=== PATIENT | female | born 1970 | race Caucasian/White ===

== ENCOUNTER 2019-12-22 15:51 | Emergency (ER) | payer OTHER, SELFPAY ==
--- NOTE | ~2019-12-22 | XR_ITS ---
XR foot RT min 3V, XR foot LT min 3V 12/22/2019 16:51 Indication: Bilateral foot pain Procedure: 4 views of each foot Comparison: No prior studies for comparison. Findings: No fracture, subluxation or dislocation. Lisfranc joint intact. Normal mineralization. Ther e is anatomic alignment. No focal soft tissue abnormality. No radiopaque foreign bodies. Impression: 1: No acute bone or joint abnormality. Reviewed, dictated and finalized at location A. Impression: 1: No acute bone or joint abnormality. Impression: 1: No acute bone or joint abnormality.
--- NOTE | ~2019-12-22 | US_ITS ---
EXAMINATION: US venous doppler [facility] DATE: 12/22/2019 17:08 INDICATION: Lower limb swelling and pain TECHNIQUE: John scale images without and with compression and Doppler images of the bilateral lower e xtremity veins were obtained. COMPARISON: None FINDINGS: The right common femoral vein, profunda femoral vein, femoral vein, popliteal vein, peroneal trunk, p osterior tibial veins, and greater saphenous vein are patent. The left common femoral vein, profunda femoral vein, femoral vein, popliteal vein, peroneal trunk, po sterior tibial veins, and greater saphenous vein are patent. IMPRESSION: 1. Patent bilateral lower extremity veins. No evidence of deep venous thrombosis. Reviewed, dictated and finalized at location A. IMPRESSION: 1. Patent bilateral lower extremity veins. No evidence of deep venous thrombosi s.
--- NOTE | ~2019-12-22 | CT_ITS ---
EXAMINATION: CTA chest PE protocol DATE: 12/22/2019 18:09 INDICATION: Pleuritic chest pain and shortness of breath TECHNIQUE: Computed tomography angiography (CTA) of the chest was performed with 100 mL Omnipaque-350 intravenous contrast timed to evaluate the pulmonary arteries. Coronal maximum intensity projection 3D-reconstructions were created by the technologist. The dose-length product (DLP) was 743.16 mGy-cm. Automated exposure control and iterative reconstruction technique were employed. COMPARISON: 11/30/2018 FINDINGS: The pulmonary arteries are well-opacified. Filling defects are present in subsegmental bran ches of the right lower lobe in a distribution similar to prior CT examinations. No additional pulmon catarina emboli are identified. The lungs are free of acute opacities. There is no pleural effusion or pne umothorax. No pathologically enlarged thoracic lymph nodes are identified. The heart size is normal. Chronic subpleural airspace opacity of the right lung base likely reflects scarring. The gallbladder is surgically absent. IMPRESSION: 1. Pulmonary emboli in the right lower lobe which are in a distribution similar to previously identif ied emboli and have a chronic appearance. No acute emboli are identified. These findings were discuss ed with Kaylin Torres PA-C in the Emergency Department at 1836 hours on 12/22/2019. Reviewed, dictated and finalized at location A. IMPRESSION: 1. Pulmonary emboli in the right lower lobe which are in a distribution similar to previously identified emboli and have a chronic appearance. No acute emboli are identified. These findings were discussed with Kaylin Torres PA-C in [facility] Emergency Department at 1836 hours on 12/22/2019.
--- NOTE | ~2019-12-22 | XR_ITS ---
EXAMINATION: XR chest 2V 12/22/2019 16:51 INDICATION: Pleuritic chest pain PROCEDURE: 2 view chest COMPARISON: 11/19/2018 FINDINGS: The lungs are clear. The cardiomediastinal silhouette is within normal limits. There are no pleural effusions. There is no pneumothorax suspected. IMPRESSION: 1: NO ACUTE CARDIOPULMONARY DISEASE. Reviewed, dictated and finalized at location A.
[2019-12-22 15:53] VITALS: BP 132/95; PULSE 75; RESP 18; TEMP 36.6; O2SAT 100
[2019-12-22] MEDS: ACETAMINOPHEN 500 MG TABLET 1000 MG PO (16:29)
--- NOTE | 2019-12-22 16:32 | ED.LOWEXIN ---
HPI - Extremity Injury (Lower) General Chief Complaint: Extremity Injury, Lower <Kaylin Torres PA-C - Last Filed: 12/22/19 20:04> Stated Complaint: bilateral leg pain <EMELI Wylie Last Filed: 12/22/19 20:04> Time Seen by Provider: 12/22/19 16:06 <Kaylin Torres PA-C - Last Filed: 12/22/19 20:04> Source: patient <EMELI Wylie Last Filed: 12/22/19 20:04> Mode of arrival: ambulatory <EMELI Wylie Last Filed: 12/22/19 20:04> Limitations: no limitations <EMELI Wylie Last Filed: 12/22/19 20:04> History of Present Illness HPI Narrative: This is a 49-year-old female that presents the emergency department for bilateral lower extremity pain x3 weeks. Pain is mostly in the calves and into the foot and ankles. 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 Reports she is on Xarelto. She has been taking it as prescribed. Reports she is also been having intermittent pleuritic chest pain. Also reports intermittent shortness of breath. Reports lower extremity edema. Denies fever, cough, or lower extremity erythema. <Kaylin Torres PA-C - Last Filed: 12/22/19 20:04> Related Data Home Medications: Home Medications Medication Instructions Recorded Confirmed ferrous sulfate 325 mg (65 mg 325 mg PO DAILY 02/22/19 iron) tablet levetiracetam 1,000 mg tablet 1,500 mg PO BID tablet 02/22/19 levothyroxine 25 mcg capsule 25 mcg PO DAILY 02/22/19 rivaroxaban 20 mg tablet 20 mg PO DAILY 02/22/19 topiramate 100 mg tablet 100 mg PO BID 02/22/19 lacosamide 100 mg tablet 100 mg PO Q12H 03/03/19 <EMELI Wylie Last Filed: 12/22/19 20:04> Allergies/Adverse Reactions: Allergies Allergy/AdvReac Type Severity Reaction Status Date / Time No Known Allergies Allergy Unverified 12/03/18 15:47 <Kaylin Torres PA-C - Last Filed: 12/22/19 20:04> Review of Systems Review of Systems: Narrative: CONSTITUTIONAL: Denies fever CARDIOVASCULAR: Reports chest pain, and edema. RESPIRATORY: Reports dyspnea. Denies cough SKIN: Denies rash MUSCULOSKELETAL: Reports joint pain, and myalgia. NEUROLOGIC: Denies numbness <Kaylin Torres PA-C - Last Filed: 12/22/19 20:04> All systems reviewed & are unremarkable except as noted in HPI and below <Kaylin Torres PA-C - Last Filed: 12/22/19 20:04> [facility] Past Medical History Medical History: Medical History (Updated 12/23/19 @ 00:00 by [facility] Daheather) Anemia Headache, migraine Seizure disorder <Kaylin Torres PA-C - Last Filed: 12/22/19 20:04> Surgical History Surgical History: Surgical History (Updated 12/22/19 @ 17:28 by Kaylin Torres PA-C) History of cholecystectomy <Kaylin Torres PA-C - Last Filed: 12/22/19 20:04> Social History Social History: Social History Smoking status: Never smoker Alcohol intake: never <Kaylin Torres PA-C - Last Filed: 12/22/19 20:04> Exam Narrative: Exam Narrative: GENERAL: Well-appearing, obese, and in no acute distress. HEAD: Normocephalic, atraumatic. EYES: EOMI. CHEST: Clear to auscultation. No respiratory distress. No wheezes rales or rhonchi HEART: Regular rate and rhythm. No murmur heard. Normal peripheral pulses. ABDOMEN: Soft, nontender, nondistended, normal active bowel sounds. EXTREMITIES: Normal range of motion. Mild non-pitting edema about the ankles and into the foot. Normal DP pulses SKIN: Warm, dry, no rash. NEURO: No focal deficits. Alert and oriented x3. PSYCH: Normal mood and affect <Kaylin Torres PA-C - Last Filed: 12/22/19 20:04> Course Vital Signs Vital signs: Vital Signs Temperature 36.6 C 12/22/19 15:53 Pulse Rate 75 12/22/19 15:53 Respiratory Rate 18 12/22/19 15:53 Blood Pressure 132/95 H 12/22/19 15:53 Pulse Oximetry 100 12/22/19 15:53 Temperature 36.6 C 12/22/19 15:53 Pulse Rate 77 12/22/19 20:10
--- NOTE | 2019-12-22 17:00 | ECG_ITS ---
Measurements Intervals [place] Rate: 73 P: 57 MD: 153 QRS: 43 QRSD: 85 T: 52 QT: 374 QTc: 414 Interpretive Statements SINUS RHYTHM BASELINE ARTIFACT- I, II, AVR, AVL, AVF NORMAL ECG Electronically Signed On 12-23-2019 20:02:42 CDT by Drew Leyva D.O.
[2019-12-22 17:18] VITALS: BP 109/66; PULSE 79; RESP 19; O2SAT 100
[2019-12-22 17:34] LABS: Basophils Absolute Auto 0.1 K/mm3 (0.0-0.1); Basophils Percent Auto 0.7 % (0.2-1.2); Eosinophils Absolute Auto 0.6 K/mm3 (0-0.3); Eosinophils Percent Auto 7.6 % (0-4.4); Hematocrit 33.6 % (37.0-47.0); Hemoglobin 10.8 g/dL (12.0-15.0); Immature Granulocyte Absolute 0.02 K/mm3 (0.00-0.031); Immature Granulocyte Percent A 0.3 % (0-0.5); Lymphocytes Absolute Auto 3.54 K/mm3 (0.9-3.2); Lymphocytes Percent Auto 46.6 % (18.3-44.2); Mean Corpuscular HGB Conc 32.1 g/dl (32-36); Mean Corpuscular Hemoglobin 31.2 pg (26-34); Mean Corpuscular Volume 97.1 fl (80-100); Mean Platelet Volume 10.6 fl (7.4-10.4); Monocytes Absolute Auto 0.7 K/mm3 (0.1-0.6); Monocytes Percent Auto 8.6 % (2.6-8.5); Neutrophils Absolute Auto 2.8 K/mm3 (1.3-6.7); Neutrophils Percent Auto 36.2 % (45.5-73.1); Platelet Count Result 316 k/mm3 (150-375); Red Blood Count 3.46 M/mm3 (4.2-5.4); Red Cell Distribution Width 12.7 % (11.5-14.5); White Blood Count 7.6 K/mm3 (4.5-10.0)
[2019-12-22 17:43] LABS: INR 1.1; Partial Thromboplastin Time 23.6 SECONDS (22.3-36.8)
[2019-12-22 17:46] LABS: Anion Gap 4 mmol/L (8-16); Blood Urea Nitrogen 18 mg/dL (7-17); Carbon Dioxide 23 mmol/L (22-30); Chloride 108 mmol/L (98-107); Estimated CRCL calculation 84 ml/min; Estimated Glomerular Filt Rate > 60; Glucose 94 mg/dL (65-105); Potassium 4.4 mmol/L (3.4-5.0); Sodium 135 mmol/L (137-145)
[2019-12-22 17:58] LABS: NT Pro B Type Natriuretic Pept 26 PG/ML (5-100); Troponin I < 0.012 ng/mL (0.000-0.034)
[2019-12-22 19:10] VITALS: BP 116/56; PULSE 88; RESP 12; O2SAT 97
--- NOTE | 2019-12-22 19:28 | ECG_ITS ---
Measurements Intervals [place] Rate: 85 P: 58 MA: 154 QRS: 44 QRSD: 76 T: 63 QT: 361 QTc: 430 Interpretive Statements SINUS RHYTHM LOW QRS VOLTAGE IN PRECORDIAL LEADS BASELINE ARTIFACT- I, II, III, AVR, AVL, AVF, V1-V2 BORDERLINE ECG Electronically Signed On 12-23-2019 6:50:39 CDT by Drew Leyva D.O.
--- NOTE | 2019-12-22 19:31 | PC.NURSE ---
Pt. reporting increased chest pain. ERP notified, at bedside. VORB repeat ekg and if normal pt can go home.
[2019-12-22] MEDS: IBUPROFEN 600 MG TABLET PO (19:38)
--- NOTE | 2019-12-22 20:08 | PC.NURSE ---
Pt. requesting to speak w/ ERP before discharge.
[2019-12-22 20:10] VITALS: BP 109/70; PULSE 77; RESP 17; O2SAT 100
== END 2019-12-22 20:10 | disposition home or self-care (01) ==
PROVIDERS: Physician Assistant; Emergency Provider Emergency Medicine
DX: M79.662 Pain in left lower leg (principal); M79.661 Pain in right lower leg; R07.81 Pleurodynia; D64.9 Anemia, unspecified; Z79.01 Long term (current) use of anticoagulants; G40.909 Epilepsy, unspecified, not intractable, without status epilepticus; I27.82 Chronic pulmonary embolism; R94.31 Abnormal electrocardiogram [ECG] [EKG]
CPT/HCPCS: 36415; 71046; 71275; 73630; 80048; 81025; 83880; 84484; 85025; 85610; 85730; 93005; 93970; 99284; A9270; Q9967

== ENCOUNTER 2020-07-02 06:21 | Emergency (ER) | payer OTHER, SELFPAY ==
--- NOTE | ~2020-07-02 | CT_ITS ---
EXAMINATION: CT brain wo con DATE: 07/02/2020 08:01 INDICATION: Seizure. Headache. Dizziness. TECHNIQUE: Computed tomography (CT) of the head was performed without intravenous contrast. The mA wa s adjusted according to patient size. Iterative reconstruction technique was employed. The dose-lengt h product was 605.33 mGy-cm. COMPARISON: Head CT 12/03/2018 FINDINGS: There is no intracranial hemorrhage, acute infarction, or abnormal intracranial mass lesion . The ventricles are normal in size. The orbits are normal. There is mucosal thickening in the parana betsy sinuses. The mastoid air cells are normal. IMPRESSION: 1. Normal brain. Reviewed, dictated and finalized at location A. IMPRESSION: 1. Normal brain.
--- NOTE | ~2020-07-02 | XR_ITS ---
EXAMINATION: XR chest 1V portable DATE: 07/02/2020 06:55 INDICATION: Chest pain. TECHNIQUE: A single frontal view of the chest was obtained. COMPARISON: Chest 2 views 12/22/2019, chest CT 12/22/2019 FINDINGS: There is mild atelectasis at right lung base. No pleural effusion or pneumothorax. The hear t size is normal. IMPRESSION: 1. Mild atelectasis at right lung base. Reviewed, dictated and finalized at location A.
[2020-07-02 06:17] VITALS: BP 121/77; PULSE 76; RESP 16; TEMP 36.2; O2SAT 97
--- NOTE | 2020-07-02 06:47 | ECG_ITS ---
Measurements Intervals [place] Rate: 61 P: 67 MO: 157 QRS: 54 QRSD: 81 T: 49 QT: 401 QTc: 404 Interpretive Statements SINUS RHYTHM BASELINE ARTIFACT- V1-V2 NORMAL ECG Electronically Signed On 07-02-2020 7:09:53 CDT by Drew Leyva D.O.
[2020-07-02 07:04] LABS: Basophils Absolute Auto 0.1 K/mm3 (0.0-0.1); Basophils Percent Auto 0.9 % (0.2-1.2); Eosinophils Absolute Auto 0.8 K/mm3 (0-0.3); Eosinophils Percent Auto 9.7 % (0-4.4); Hematocrit 36.2 % (37.0-47.0); Hemoglobin 11.8 g/dL (12.0-15.0); Immature Granulocyte Absolute 0.03 K/mm3 (0.00-0.031); Immature Granulocyte Percent A 0.4 % (0-0.5); Lymphocytes Percent Auto 39.9 % (18.3-44.2); Mean Corpuscular HGB Conc 32.6 g/dl (32-36); Mean Corpuscular Hemoglobin 32.5 pg (26-34); Mean Corpuscular Volume 99.7 fl (80-100); Mean Platelet Volume 10.4 fl (7.4-10.4); Monocytes Absolute Auto 0.7 K/mm3 (0.1-0.6); Monocytes Percent Auto 8.5 % (2.6-8.5); Neutrophils Absolute Auto 3.2 K/mm3 (1.3-6.7); Neutrophils Percent Auto 40.6 % (45.5-73.1); Platelet Count Result 334 k/mm3 (150-375); Red Blood Count 3.63 M/mm3 (4.2-5.4); Red Cell Distribution Width 12.8 % (11.5-14.5); White Blood Count 7.8 K/mm3 (4.5-10.0)
[2020-07-02 07:13] VITALS: PULSE 57
[2020-07-02 07:14] VITALS: BP 113/73; PULSE 63; RESP 20; O2SAT 99
[2020-07-02 07:14] LABS: Add Urine Microscopic? YES; Appearance Urine Cloudy (Clear); Bacteria Urine Trace /hpf; Bilirubin Urine Negative (Negative); Blood Urine 3+ (Negative); Color Urine Red (Yellow); Glucose Urine UA Negative (Negative); Ketones Urine Negative (Negative); Leukocyte Esterase Ur Negative LEU/UL (Negative); Mucus Urine Rare /lpf; Nitrate Urine Negative (Negative); Protein Urine 2+ mg/dL (Negative); RBC Urine >75 /hpf (0-2); Squamous Epithelial Cell Urine Few /hpf (Few); Urobilinogen Urine Negative mg/dL (<2.0)
[2020-07-02 07:15] LABS: Specific Grav Ur 1.034 (1.001-1.035)
[2020-07-02 07:16] LABS: Alanine Aminotransferase 12 U/L (4-35); Albumin Level 4.1 g/dL (3.5-5.1); Alkaline Phosphatase 88 U/L (38-126); Anion Gap 6 mmol/L (8-16); Aspartate Amino Transferase 17 U/L (14-36); Bilirubin,Total 0.2 mg/dL (0.2-1.3); Blood Urea Nitrogen 14 mg/dL (7-17); Calcium 8.9 mg/dL (8.4-10.2); Carbon Dioxide 23 mmol/L (22-30); Chloride 111 mmol/L (98-107); Estimated CRCL calculation 95 ml/min; Estimated Glomerular Filt Rate > 60; Glucose 100 mg/dL (65-105); Potassium 3.4 mmol/L (3.4-5.0); Sodium 140 mmol/L (137-145)
[2020-07-02 07:28] LABS: Troponin I < 0.012 ng/mL (0.000-0.034)
--- NOTE | 2020-07-02 08:21 | ED.SEIZURE ---
HPI - Seizure General Chief Complaint: Seizure Stated Complaint: seizure Time Seen by Provider: 07/02/20 07:04 History of Present Illness HPI Narrative: Patient is a 49-year-old female with history of seizure disorder who presents to the ER after having what she feels like was a seizure. She believes she had to episodes a seizure yesterday because she woke up and felt postictal. Today she members waking up getting up with a day and then she awoke on her floor. No loss of bowel or bladder. She does feel like she bit her tongue but no blood from her mouth. She takes Vimpat, Keppra, and topiramate for her seizures. She sees Dr. Mullins at [facility] for her care. She reports she has not been sleeping as well typically but has had no change in her habits otherwise and no increased stress. Patient reports mild headache after waking up. She does take a blood thinner for blood clots. Seizure History: Yes Related Data Home Medications Medication Instructions Recorded Confirmed levetiracetam 1,000 mg tablet 1,500 mg PO BID tablet 02/22/19 levothyroxine 25 mcg capsule 25 mcg PO DAILY 02/22/19 rivaroxaban 20 mg tablet 20 mg PO DAILY 02/22/19 topiramate 100 mg tablet 100 mg PO BID 02/22/19 lacosamide 100 mg tablet 100 mg PO Q12H 03/03/19 Allergies Allergy/AdvReac Type Severity Reaction Status Date / Time No Known Allergies Allergy Verified 07/02/20 06:26 Review of Systems Review of Systems: All systems reviewed & are unremarkable except as noted in HPI and below Constitutional: Constitutional: Denies chills, Denies fever(s) and Denies weakness ENT: Denies nasal congestion and Denies sore throat Comments: Tongue Pain Respiratory: Respiratory: Denies cough and Denies dyspnea Gastrointestinal: Gastrointestinal: Denies abdominal pain, Denies nausea and Denies vomiting Neurologic: Reports syncope (Seizure), Reports headache(s) and Denies numbness PMFSH Past Medical History Medical History (Updated 07/02/20 @ 10:30 by Mao Sepulveda MD) Anemia Headache, migraine Pulmonary embolism Seizure disorder Surgical History Surgical History (Updated 12/22/19 @ 17:28 by Kaylin Torres PA-C) History of cholecystectomy Social History Social History Smoking status: Never smoker Alcohol intake: never Exam Narrative: Exam Narrative: GENERAL: Well-appearing, well-nourished, and in no acute distress. HEAD: Normocephalic, atraumatic. ENT: Mucous membranes moist. Normal-appearing tongue CHEST: Clear to auscultation. No respiratory distress. HEART: Regular rate and rhythm. Normal peripheral pulses. ABDOMEN: Soft, nontender, nondistended. EXTREMITIES: Normal range of motion. No edema. SKIN: Warm, dry, no rash. NEURO: Alert and oriented x3. Course Course Emergency Course: Patient resting comfortably. Discussed with Dr. Mullins. Recommends increasing patient's Keppra to 1500 mg twice a day. We will add on levels for the topiramate as well as the Keppra. He also request CK and prolactin levels. These do not need to be resulted before patient is discharged. Patient verbalized understanding of treatment plan. She has been instructed not to drive or operate heavy machinery. Vital Signs Vital signs: Vital Signs Temperature 97.2 F L 07/02/20 06:17 Pulse Rate 76 07/02/20 06:17 Respiratory Rate 16 07/02/20 06:17 Blood Pressure 121/77 07/02/20 06:17 Pulse Oximetry 97 07/02/20 06:17 Temperature 97.2 F L 07/02/20 06:17 Pulse Rate 64 07/02/20 09:22 Respiratory Rate 17 07/02/20 09:22 Blood Pressure 111/69 07/02/20 09:22 Pulse Oximetry 100 07/02/20 09:22 MDM - Seizure Lab Data Result diagrams: 07/02/20 06:48 07/02/20 06:48 Labs: Lab Results 07/02/20 07/02/20 07/02/20 Range/Units 06:48 06:48 06:48 WBC 7.8 (4.5-10.0) K/mm3 RBC 3.63 L (4.2-5.4) M/mm3 Hgb 11.8 L (12.0-15.0) g/dL Hct 36.2 L (37.0-47.0) % MCV
[2020-07-02 09:22] VITALS: BP 111/69; PULSE 64; RESP 17; O2SAT 100
[2020-07-02] MEDS: levETIRAcetam 500 MG TABLET 1500 MG PO (09:44)
[2020-07-02 10:36] VITALS: BP 113/73; PULSE 71; RESP 21; O2SAT 100
[2020-07-06 03:13] LABS: Levetiracetam Keppra 13.3 mcg/mL (12.0-46.0)
== END 2020-07-02 10:37 | disposition home or self-care (01) ==
PROVIDERS: Emergency Medicine; Emergency Provider Emergency Medicine
DX: G40.909 Epilepsy, unspecified, not intractable, without status epilepticus (principal); Z86.711 Personal history of pulmonary embolism; Z79.01 Long term (current) use of anticoagulants
CPT/HCPCS: 36415; 70450; 71045; 80053; 80177; 81001; 84484; 85025; 87086; 87088; 93005; 99284; A9270

== ENCOUNTER 2025-02-27 15:04 | Emergency (ER) | payer OTHER, SELFPAY ==
--- NOTE | ~2025-02-27 | XR_ITS ---
XR tibia fibula RT 2V 02/27/2025 18:12 Indication: Right fibular fracture Procedure: 4 views right tibia/fibula Comparison: 02/27/2025 Findings: Stable appearance to proximal right fibular fracture. No other fracture. No soft tissue abnormality. No foreign body. Impression: 1: Stable appearance to minimally displaced proximal fibular fracture. Reviewed, dictated and finalized at location I. E MECHANIC Impression: 1: Stable appearance to minimally displaced proximal fibular fracture.
--- NOTE | ~2025-02-27 | XR_ITS ---
XR knee RT 3V 02/27/2025 17:34 Indication: Right knee pain Procedure: 3 views right knee Comparison: No prior studies for comparison. Findings: There is anatomic alignment. There is an fracture superior aspect of the fibula. No other fracture. No significant joint effusion. Impression: 1: Proximal fibular fracture with minimal displacement. Reviewed, dictated and finalized at location I. ICE TECHNICIAN Impression: 1: Proximal fibular fracture with minimal displacement.
--- NOTE | ~2025-02-27 | US_ITS ---
EXAMINATION:US venous doppler LE BI INDICATION:History of DVT TECHNIQUE: Multiple grayscale, color flow and Doppler images of the right and left lower extremity deep venous systems were obtained and reviewed. COMPARISON:No prior studies for comparison. FINDINGS: The common femoral, superficial femoral and popliteal veins demonstrate normal respiratory variation, augmentation and compressibility. Color flow is also seen within the posterior tibial, peroneal, greater saphenous and profunda veins. IMPRESSION: 1: No lower extremity deep venous thrombosis. Reviewed, dictated and finalized at location I. NSED ACUPUNCTURIST
[2025-02-27 15:17] VITALS: BP 136/81; PULSE 89; RESP 17; TEMP 36.6; O2SAT 98
--- OUTSIDE RECORDS SUMMARY | 2025-02-27 15:47 | XMS_ITS | Encounter Summary ---
Author Organization [facility] Address [address] [place] [address] Phone Care Team Providers Care Parachute Manufacturing Supervisor Name Role Phone Rachna Orozco Primary Care Provider + Marin Mullins MD Unavailable Joanne Martins APRN, [facility] Unavailable [phone] Reason for Visit * Reason Comments Medication Refill Encounter Details Date Type Department Care Team (Late st Contact Info) Description 05/29/2024 Refill [facility] - Family Medicine [facility] [address] [place] [address] Rachna Orozco PAC [address] [place] [address] Medication Refill Social History Tobacco Use Types Packs/Day Years Used Date Smoking Tobacco: Never Smokeless Tobacco: Never Alcohol Use Standard Drinks/Week Comments No 0 (1 standard drink = 0.6 oz pur e alcohol) [facility] Utilities Answer Date Recorded In the past 12 months has [employer] electric, gas, oil, or water company threatened to shut off services in your home? No 12/13/2023 Social Connection and Isolation Panel Answer Date Recorded In a typical week, how many times do you talk on the phone with family, friends, or neighbors? More than three times a week 12/13/2023 How often do you get togethe r with friends or relatives? More than three times a week 12/13/2023 How often do you attend chur or baptist services? 1 to 4 times per year 12/13/2023 Do you belong to any clubs o r organizations such as moravian groups, unions, fraternal or athletic groups, or school groups? No 12/13/2023 How often do you attend meet ings of the clubs or organizations you belong to? Never 12/13/2023 Are you , , di vorced, , never , or living with a partner? Patient declined 12/13/2023 AUDIT-C Answer Date Recorded Q1: How often do you have a drink containing alcohol? Never 12/13/2023 Q2: How many drinks containi ng alcohol do you have on a typical day when you are drinking? Patient does not drink Q3: How often do you have si x or more drinks on one occasion? Never 12/13/2023 Overall Financial Resource Strain (CARDIA) Answe r Date Recorded How hard is it for you to pa y for the very basics like food, housing, medical care, and heating? Very hard 12/13/2023 PHQ-2 Answer Date Recorded Total Score - Questions 1-9 0 03/30 [facility] - Occupational Stress Questionnaire Answer Date Recorded Do you feel stress - tense, restless, nervous, or anxious, or unable to sleep at night because your mind is troubled all the time - these days? Only a little 12/13/2023 Exercise Vital Sign Answer Date Recorde d On average, how many days pe r week do you engage in moderate to strenuous exercise (like a brisk walk)? 1 day 12/13/2023 On average, how many minutes do you engage in exercise at this level? 30 min 12/13/2023 Hunger Vital Sign Answer Date Recorded Within the past 12 months, y ou worried that your food would run out before you got the money to buy more. Patient declined Within the past 12 months, t he food you bought just didn't last and you didn't have money to get more. Patient declined PRAPARE - Transportation Answer Date Re corded In the past 12 months, has l ack of transportation kept you from medical appointments or from getting medications? No 11/28 In the past 12 months, has l ack of transportation kept you from meetings, work, or from getting things needed for daily living? No 12/13/2023 Housing Stability Vital Sign Answer [place] e Recorded In the last 12 months, was t here a time when you were not able to pay the mortgage or rent on time? No 07/08/2023 In the last 12 months, how many places have you lived? 0 07/08/2023 In the last 12 months, was t here a time when you did not have a steady place to sleep or slept in a snf (including now)? No 07/08/2023 Housing Stability Vital Sign Answer [place] Recorded In the last 12 months, was t here a time when you were not able to pay the mortgage or rent on time? No 12/13/2023 Number of Times Moved in the Last Year Not on fi le 12/13/2023 At any time in the past 12 m [facility], were you homeless or living in a snf (including now)? No 12/13/2023 Education Answer Date Recorded What is the highest level of school you have completed or the highest degree you have received? 12th grade 08/15/2022 Sexually Active Control Partners Comments Not Currently Comments No Sex and Gender Information Value Date Recorded Sex Assigned at Not on file Legal Sex Female 12:12 PM MEDICAL CLAIMS PROCESSOR Gender Identity Not on file Sexual Orientation Not on file documented as of this encounter Miscellaneous Notes * Telephone Encounter - Alvina Dacosta RN - 05/30/2024 11:17 AM CST Name from pharmacy: PHENTERMINE 37.5MG TABLETS Will file in chart as: Phentermine HCl 37.5 MG Tablet The original prescription was discontinued on 04/10/2023 by Rachna Orozco, PAC CAL CLAIMS PROCESSOR documented in this encounter Plan of Treatment Upcoming Encounters Date Type Department Care Team (Late st Contact Info) Description 03/13/2025 4:40 PM MEDICAL CLAIMS PROCESSOR Office Visit [facility] Medical [facility] - Family Medicine - [place] [address] [facility] [place] [address] Rachna Orozco PAC [address] [facility] [place] [address] 04/28/2025 4:00 PM MEDICAL CLAIMS PROCESSOR Office Visit [facility] Neurology - [place] [address] [facility] [place] [address] Joanne Martins APRN, SALES CLOSER [address] [place] [address] documented as of this encounter Visit Diagnoses Diagnosis BMI 40.0-44.9, adult Body Mass Index 40.0-44.9, adult Dietary counseling and surveillance Dietary surveillance and counseling documented in this encounter Additional Health Concerns Assessment Noted Time PHQ-9 Depression Total Score: 0 04/10/19 3:43 PM MEDICAL CLAIMS PROCESSOR documented as of this encounter Care Teams Parachute Manufacturing Supervisor Relationship Specialty Start Date End Date Rachna Orozco PAC [address] [place] [address] PCP - General Physician [employer] 05/19/18 Marin Mullins MD [address] [place] [address] Consulting Physician Neurology 06/17/21 Joanne Martins APRN, SALES CLOSER [address] [place] [address] Nurse Practitioner Advanced Practice Nurse 12/14/23 documented as of this encounter
--- OUTSIDE RECORDS SUMMARY | 2025-02-27 15:47 | XMS_ITS | Encounter Summary ---
Author Organization [facility] Address [address] [place] [address] Phone Care Team Providers Care Woodyard Crane Operator Name Role Phone Rachna Orozco Primary Care Provider + Marin Mullins MD Unavailable [phone] Joanne Martins APRN, [facility] Unavailable [phone] Reason for Visit * Reason Comments Medication Refill Encounter Details Date Type Department Care Team (Late st Contact Info) Description 06/12/2022 [facility]ill [facility] [address] [place] [id number] Rachna Orozco PAC [address] [place] [address] Medication Refill Social History Tobacco Use Types Packs/Day Years Used Date Smoking Tobacco: Never Smokeless Tobacco: Never Alcohol Use Standard Drinks/Week Comments No 0 (1 standard drink = 0.6 oz pur e alcohol) PHQ-2 Answer Date Recorded Total Score - Questions 1-9 0 03/0 11/2020 Education Answer Date Recorded What is the highest level of school you have completed or the highest degree you have received? Associate degree: occupational, technical, or vocational program 02/09/2022 Sexually Active Control Partners Comments Not Currently Comments No Sex and Gender Information Value Date Recorded Sex Assigned at Not on file Legal Sex Female 12:12 PM CALL CENTER NURSE Gender Identity Not on file Sexual Orientation Not on file documented as of this encounter Miscellaneous Notes * Telephone Encounter - Alvina Dacosta RN - 06/12/2022 5:04 PM CDT Images from the original note were not included. June 02, 2022 Rachna Orozco PAC 1:01 PM Note Last vitamin d in range documented in this encounter Plan of Treatment Upcoming Encounters Date Type Department Care Team (Late st Contact Info) Description 03/13/2025 4:40 PM CALL CENTER NURSE Office Visit [facility] - Family Medicine [facility] [address] [place] [address] Rachna Orozco PAC [address] [place] [address] 04/28/2025 4:00 PM CALL CENTER NURSE [facility] [address] [place] [address] Joanne Martins APRN, LOSS MITIGATION SPECIALIST [address] [place] [address] documented as of this encounter Visit Diagnoses Diagnosis Low vitamin D level documented in this encounter Additional Health Concerns Assessment Noted Time PHQ-9 Depression Total Score: 0 06/06/19 21 9:03 AM CALL CENTER NURSE documented as of this encounter Care Teams Woodyard Crane Operator Relationship Specialty Start Date End Date Rachna Orozco PAC [address] [place] [address] PCP - General Physician Taker [employer] 05/19/18 Marin Mullins MD [address] [place] [address] Consulting Physician Neurology 06/17/21 Joanne Martins APRN, LOSS MITIGATION SPECIALIST [address] [place] [address] Nurse Practitioner Advanced Practice Nurse 12/14/23 documented as of this encounter
--- OUTSIDE RECORDS SUMMARY | 2025-02-27 15:47 | XMS_ITS | Clinical Summary ---
Author Organization [facility] Address [address] [place] [address] Care Team Providers Care Primary Care Md Name Role Phone Rachna Orozco Primary Care Provider + [phone] Murphy Washington MD Unavailable [phone] Source Comments [facility],non-owned Affiliates and Associated Physician Practices is amultiple site organization consisting of ambulatory clinics and hospital sitesin [place], [place], [place] and [place]. This disclosure is being madepursuant to the Care Everywhere program and may not contain all information available regarding this patient. Last updated 17.[facility] Allergies No known active allergies Medications * Be aware that medications may not be up to date on this document. Alwaysverify current medications with the patient. hydrOXYzine hcl (ATARAX) 25 MG tablet Take 1 tablet by mouth 3 times daily as needed 30 tablet 8 Active ELIQUIS 5 MG tablet Take 5 mg by mouth once daily 5 8 Active oxyCODONE-aceta minophen (PERCOCET) 10-325 MG tablet Take 10-325 tablets by mouth as needed 0 8 Active levETIRAcetam (KEPPRA) 1000 MG tablet Take 1.5 tabs in AM, 1 tab noon, 1.5 tabs HS 120 tablet 11 8 Active topiramate (TOPAMAX) 100 MG tablet Take 1 tablet by mouth 2 times daily 60 tablet 11 8 Active topiramate (TOPAMAX) 100 MG tablet TAKE 1 TABLET BY MOUTH TWICE DAILY 60 tablet 9 Active Additional Information Patient not taking.Reported on 10/15/2018 rivaroxaban (XARELTO) 20 MG tablet Take 20 mg by mouth daily with food Active levothyroxine (SYNTHROID) 50 MCG tablet Take 50 mcg by mouth daily before breakfast Active lacosamide (VIMPAT) 100 MG tablet Take 100 mg by mouth 2 times daily Active ferrous sulfate 325 (65 FE) MG tablet Take 325 mg by mouth 2 times daily with morning and evening meal Active Acetaminophen-C odeine 300-30 MG Take 1 tablet by mouth every 6 hours as needed Active Active Problems Problem Noted Date Diagnosed Date 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 (F LUZONE; FLULAVAL; FLUARIX; AFLURIA QUADRIVALENT; 6MO+), 0.5 ML (IIV4) 02/12/2017 Family History Medical History Relation Name Comments Glaucoma Neg Hx Macular Degeneration Neg Hx Social History Tobacco Use Types Packs/Day Years Used Date Smoking Tobacco: Never Smokeless Tobacco: Never Alcohol Use Standard Drinks/Week Comments No 0 (1 standard drink = 0.6 oz pur e alcohol) Comments No Sex and Gender Information Value Date Recorded Sex Assigned at Not on file Legal Sex Female 8:47 AM CDT Gender Identity Not on file Sexual Orientation Not on file Last Filed Vital Signs Vital Sign Reading Time Taken Comments Blood Pressure 108/62 09/15/2017 11:06 AM CDT Pulse 97 09/15/2017 11:06 AM CDT Temperature 36.8 C (98.3 F) 07/04/2017 8:34 AM CDT Respiratory Rate 16 07/04/2017 8:34 AM CDT Oxygen Saturation 99% 09/15/2017 11:06 AM CDT Inhaled Oxygen Concentration - - Weight 114.8 kg (253 lb) 09/15/2017 11:06 AM CDT Height 170.2 cm (5' 7) 09/15/2017 11:06 AM CDT Body Mass Index 39.63 09/15/2017 11:06 AM CDT Plan of Treatment Health Maintenance Due Date Last Done Comments COLOGUARD (AGES 45-75) - COL ON CA SCREENING 1970 COLON MONITORING 1970 COLONOSCOPY - COLON CA SCREENING 1970 CT COLONOGRAPHY - COLON CA SCREENING 1970 Colorectal Cancer Screening 1970 FIT - COLON CA SCREENING 1970 FLEX SIG - COLON CA SCREENING 1970 LIPID TESTING 1970 MAMMOGRAM 1970 HIV SCREENING 1985 HEPATITIS C SCREENING 09/21/1988 DTAP/TDAP/TD VACCINES (1 - Tdap) 1989 HEPATITIS B VACCINE (1 of 3 - 19+ 3-dose series) 1989 Cervical Cancer Screening 09/27/1991 PAP SMEAR 09/27/1991 PAP with HPV 2000 PNEUMOCOCCAL VACCINE 50+ (1 of 1 - PCV) 2020 ZOSTER VACCINE (1 of 2) 2020 DEPRESSION SCREENING 03/30/2024 COVID-19 VACCINE (1 - 2024-2 6 season) 2024 INFLUENZA VACCINE (#1) 2024 , 02/12/2017 HIB VACCINE Aged Out No longer eligi ble based on patient's age to complete this topic HPV VACCINE Aged Out No longer eligi ble based on patient's age to complete this topic MENINGOCOCCAL (Group B) VACCINE SHARED DECISION-MAKING Aged Out No longer eligible based on patient's age to complete this topic MENINGOCOCCAL GROUPS A/C/Y/W VACCINE Aged Out No longer eligible b ased on patient's age to complete this topic Insurance [facility] - OUT OF STATE Advance Directives * Full Code (Latest Code Status on File) Date Activated Date Inactivated Comments 07/01/2017 1:57 AM 07/04/2017 1:11 PM * Full Code Date Activated Date Inactivated Comments 05/21/2017 1:11 PM 05/28/2017 3:01 PM * Full Code Date Activated Date Inactivated Comments 02/09/2017 10:10 AM 02/14/2017 2:04 PM Care Teams Primary Care Md Relationship Specialty Start Date End Date Rachna Orozco PA PCP - General 09/28/18 Murphy Washington MD [address] [address] PCP - Attributed-[employer] [place] 10/29/23
--- OUTSIDE RECORDS SUMMARY | 2025-02-27 15:47 | XMS_ITS | Encounter Summary ---
Author Organization [facility] Address [address] [place] [address] Phone Care Team Providers Care Automobile Service Station Manager Name Role Phone Rachna Orozco Primary Care Provider + Marin Mullins MD Unavailable [phone] Joanne Martins APRN, PLASTICS PRODUCTION MACHINE OPERATOR Unavailable +- [phone] Reason for Visit * Reason Comments Medication Refill Encounter Details Date Type Department Care Team (Late st Contact Info) Description 04/13/2022 Refill [facility] - Cancer Center Oncology Services [address] [place] [address] Allen Mane MD [address] [place] [address] Medication Refill Social History Tobacco Use Types [...] on file Legal Sex Female 12:12 PM RUBBER OFF Gender Identity Not on file Sexual Orientation Not on file documented as of this encounter Miscellaneous Notes * Telephone Encounter - Jamaica Renteria PAC - 04/14/2022 2:04 PM RUBBER OFF Adjusted quantity of her refills to 5, refill was approved. ER OFF * Telephone Encounter - Erika Ayers RN - 04/14/2022 1:39 PM CST Okay to refill Xarelto? Last f/u with you in December 2021; no f/u scheduled. 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 ER OFF documented in this encounter Plan of Treatment Upcoming Encounters Date Type Department Care Team (Late st Contact Info) Description 03/13/2025 4:40 PM RUBBER OFF Office Visit [facility] Medical [facility] - Family Medicine [facility] [address] [place] [address] Rachna Orozco, PAC [address] [place] [address] 04/28/2025 4:00 PM RUBBER OFF Office Visit [facility] [place] [place] - Neurology - [place] [address] [place] [address] Joanne Martins APRN, PLASTICS PRODUCTION MACHINE OPERATOR [address] [place] [address] documented as of this encounter Visit Diagnoses Not on filedocumented in this encounter Additional Health Concerns Assessment Noted Time PHQ-9 Depression Total Score: 0 06/06/19 21 9:03 AM RUBBER OFF documented as of this encounter Care Teams Automobile Service Station Manager Relationship Specialty Start Date End Date Rachna Orozco, [facility] [address] [place] [address] PCP - General Physician Relish Maker 05/19/18 Marin Mullins MD [address] [place] [phone] Consulting Physician Neurology 06/17/21 Joanne Martins APRN, PLASTICS PRODUCTION MACHINE OPERATOR [address] [place] [address] Nurse Practitioner Advanced Practice Nurse 12/14/23 documented as of this encounter
--- OUTSIDE RECORDS SUMMARY | 2025-02-27 15:47 | XMS_ITS | Encounter Summary ---
Author Organization [facility] Address [address] [place] [address] Phone Care Team Providers Care Network Security Officer Name Role Phone Rachna Orozco Primary Care Provider + Marin Mullins MD Unavailable [phone] Joanne Martins APRN, MEASURING MACHINE TENDER Unavailable [phone] Reason for Visit * Reason Comments Medication Refill Encounter Details Date Type Department Care Team (Late st Contact Info) Description 03/24/2020 Refill [facility] - [facility]rology - [place] [address] [place] [phone] Marin Mullins MD [address] [place] [phone] Medication Refill Social History Tobacco Use Types Packs/Day Years Used Date Smoking Tobacco: Never Smokeless Tobacco: Never Alcohol Use Standard Drinks/Week Comments No 0 (1 standard drink = 0.6 oz pur e alcohol) PHQ-2 Answer Date Recorded PHQ-2 Score 0 11/25/2018 Comments No Sex and Gender Information Value Date Recorded Sex Assigned at Not on file Legal Sex Female 12:12 PM FISHING VESSEL CAPTAIN Gender Identity Not on file Sexual Orientation Not on file COVID-19 Exposure Response Date Recorded In the last month, have you been in contact with someone who was confirmed or suspected to have Coronavirus / COVID-19? No / Unsure 03/27/2020 8:39 AM FISHING VESSEL CAPTAIN documented as of this encounter Functional Status documented as of this encounter Mental Status * Question Answer Entry Date Author BP 115/71 03/27/2020 8:40 AM FISHING VESSEL CAPTAIN Connie Villarreal RN Temp 97.6 03/27/2020 8:40 AM FISHING VESSEL CAPTAIN Connie Villarreal RN Pulse 75 03/27/2020 8:40 AM FISHING VESSEL CAPTAIN Connie Villarreal RN SpO2 100 03/27/2020 8:40 AM FISHING VESSEL CAPTAIN Connie Villarreal RN * Question Answer Entry Date Author Has the patient fallen twice in the past year without injury or once in the past year with injury? No 03/27/2020 8:00 AM FISHING VESSEL CAPTAIN Connie Rose RN Does the patient report or d o you observe difficulty in gait or balance? No 03/27/2020 8:00 AM FISHING VESSEL CAPTAIN Connie Rose RN documented in this encounter Plan of Treatment Upcoming Encounters Date Type Department Care Team (Late st Contact Info) Description 03/13/2025 4:40 PM FISHING VESSEL CAPTAIN Office Visit [facility] Medical [facility] - Family Medicine [facility] [address] [place] [address] Rachna Orozco, PAC [address] [place] [address] 04/28/2025 4:00 PM FISHING VESSEL CAPTAIN Office Visit [facility] Medical [facility] - Neurology - [place] [address] [place] [address] Joanne Martins APRN, MEASURING MACHINE TENDER [address] [place] [address] documented as of this encounter Visit Diagnoses Not on filedocumented in this encounter Additional Health Concerns Assessment Noted Time PHQ-9 Depression Total Score: 0 05/19/19 19 1:00 PM FISHING VESSEL CAPTAIN documented as of this encounter Care Teams Network Security Officer Relationship Specialty Start Date End Date Rachna Orozco, [facility] [address] [place] [address] PCP - General Physician Living Advisor 05/19/18 Marin Mullins MD [address] [place] [phone] Consulting Physician Neurology 06/17/21 Joanne Martins APRN, MEASURING MACHINE TENDER [address] [place] [address] Nurse Practitioner Advanced Practice Nurse 12/14/23 documented as of this encounter
--- OUTSIDE RECORDS SUMMARY | 2025-02-27 15:47 | XMS_ITS | Clinical Summary ---
Author Organization [facility] Address [address] [place] [address] Phone Care Team Providers Care Offset Platemaker Name Role Phone Rachna Orozco Primary Care Provider + Marin Mullins MD Unavailable [phone] Joanne Martins APRN, HIGH SCHOOL GUIDANCE COUNSELOR Unavailable + [phone] Allergies No known active allergies Medications IBUPROFEN PO Take 200 mg by mouth as needed. Active Cyanocobalamin (VITAMIN B-12 PO) Take by mouth daily. Active Multiple Vitamins-Minera ls (ONE-A-DAY WOMENS PO) Take by mouth daily. Active ergocalciferol (VITAMIN D) [address]21 UNIT CapsuleIndicati ons:Low vitamin D level TAKE 1 CAPSULE BY MOUTH 1 TIME A WEEK 12 Capsule 03/10/20 22 Active acetaminophen-c odeine (TYLENOL #3) 300-30 MG TabletIndicatio ns:Chronic bilateral back pain, unspecified back location TAKE 1 TABLET BY MOUTH EVERY 4 HOURS NEEDED FOR MODERATE TO SEVERE PAIN 30 Tablet 11/26/19 23 Active methocarbamol (ROBAXIN) 750 MG TabletIndicatio ns:Chronic bilateral low back pain without sciatica Take 1 Tablet by mouth 4 times daily as needed (muscle spasm). 30 Tablet 2 12/16/19 24 Active Ferrous Sulfate (Iron) 325 (65 Fe) MG Tablet Take by mouth. Active LevETIRAcetam (KEPPRA) 1000 MG Tablet Take 1 Tablet by mouth 2 times daily. 180 Tablet 3 03/09/20 24 Active levothyroxine (SYNTHROID) 50 MCG TabletIndicatio ns:Hypothyroidi sm due to Juan's thyroiditis TAKE 1 TABLET BY MOUTH DAILY 90 Tablet 12/02/19 25 Active topiramate (TOPAMAX) 100 MG Tablet TAKE 1 TABLET BY MOUTH TWICE DAILY 180 Tablet 3 12/13/19 25 Active folic acid (FOLVITE) 1 MG TabletIndicatio ns:Folic acid deficiency TAKE 1 TABLET BY MOUTH EVERY DAY 90 Tablet 1 12/13/19 25 Active Lacosamide 150 MG TabletIndicatio ns:Seizures TAKE 1 TABLET BY MOUTH TWICE DAILY 180 Tablet 1 02/28/20 25 Active Lacosamide 150 MG TabletIndicatio ns:Seizures TAKE 1 TABLET BY MOUTH TWICE DAILY 180 Tablet 1 08/24/19 25 025 Discontinued Active Problems Problem Noted Date Diagnosed Date Iron deficiency 03/15/2021 History of pulmonary embolus (PE) 09/11/2020 Antithrombin III deficiency 2018 Acute pulmonary embolism 07/06/2018 Normocytic normochromic anemia 05/20/2018 History of DVT (deep vein thrombosis) 05/20/2018 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 Seizures 05/19/2018 Hypothyroidism B12 deficiency Resolved Problems Problem Noted Date Diagnosed Date Resolved Date Recurrent deep venous thrombosis 10/28/2018 02/27/2020 Screening, anemia, deficiency, iron 2018 10/28/2018 Encounters Date Type Department Care Team Description 02/25/2025 Refill [facility] Neurology [facility] [address] [place] [address] Joanne Martins APRN, HIGH SCHOOL GUIDANCE COUNSELOR Medication Refill 01/27/2025 3:30 PM CDT Office Visit [facility] Neurology [facility] [address] [place] [address] Jonane Martins APRN, HIGH SCHOOL GUIDANCE COUNSELOR Seizures (Primary Dx); History of pulmonary embolus (PE) Discharge Disposition: Discharged to home or Selfcare 01/25/2025 Travel 12/26/2024 2:50 PM CDT - 12/26/2024 11:59 PM CDT [facility] [address] [place] [address] Rachna Orozco, PAC Discharge Disposition: Discharged to home or Selfcare 12/26/2024 Travel 12/11/2024 [facility] [address] [place] [address] Jamaica Renteria August, PAC Medication Refill 12/11[facility] [address] [place] [address] Joanne Martins, HIGHWAY WORKER, HIGH SCHOOL GUIDANCE COUNSELOR Medication Refill 11/30/2024 [facility] [address] [place] [address] Rachna Orozco, PAC Medication Refill from Last 3 Months Immunizations Immunization Administration Dates Next Due Covid-19, Mrna, Lnp-s, Pf, 3 0 Mcg/0.3 Ml Dose ([employer]) 09/21/2020 Influenza Vaccine greater than 3 yrs 03/30/2018, 02/12/2017 Influenza Vaccine, MDCK,quad rivalent, pres free 12/11/2021 Influenza Vaccine, Quadrivalent, PF 06/2022,01/08/2021,02/27/2020,2018 Influenza, Injectable, Mdck,quadrivalent,with Preservative 01/18/2019 Influenza, Seasonal, Injecta ble, Undefined 03/30/2018 Influenza,Split Virus,Trivalent,Injectable,PF 12/15/2023 TDAP Vaccine 01/26/2019 Zoster Vaccine Recombinant 01/27/2022,12/11/2021 Family History Medical History Relation Name Comments No Known Problems Father No Known Problems Mother Relation Name Status Comments Father Mother Alive Social History Tobacco Use Types Packs/Day Years Used Date Smoking Tobacco: Never Smokeless Tobacco: Never Tobacco Cessation:Counseling Given: Not Answered Alcohol Use Standard Drinks/Week Comments No 0 (1 standard drink = 0.6 oz pur e alcohol) [facility] Utilities Answer Date Recorded In the past 12 months has e electric, gas, oil, or water company threatened [...] 12/13/2023 How often do you attend chur ch or congregation services? 1 to 4 times per year 12/13/2023 Do you belong to any clubs o r organizations such as methodist groups, unions, fraternal or athletic groups, or [...] Total Score - Questions 1-9 0 03/30 [facility] [place] [employer] [employer] - Occupational Stress Questionnaire Answer Date Recorded [...] place to sleep or slept in a custodial (including now)? No 07/08/2023 Housing Stability Vital Sign Answer [place] e Recorded In the last 12 months, was t here a time when you were not able to pay the mortgage or rent on time? No 12/13/2023 Number of Times Moved in the Last Year Not on fi le 12/13/2023 At any time in the past 12 m [facility], were you homeless or living in a custodial (including now)? No 12/13/2023 Education Answer Date Recorded What is the highest level of school you have completed or the highest degree you have received? 12th grade 08/15/2022 Sexually Active Control Partners Comments Not Currently Comments No Sex and Gender Information Value Date Recorded Sex Assigned at Not on file Legal Sex Female 12:12 PM CROSS ROLLER Gender Identity Not on file Sexual Orientation Not on file Last Filed Vital Signs Vital Sign Reading Time Taken Comments Blood Pressure 132/76 01/27/2025 3:38 PM CDT Pulse 104 01/27/2025 3:38 PM CDT Temperature 36.3 C (97.4 F) 01/27/2025 3:38 PM CDT Respiratory Rate 16 01/27/2025 3:38 PM CDT Oxygen Saturation 99% 01/27/2025 3:38 PM CDT Inhaled Oxygen Concentration - - Weight 128.1 kg (282 lb 4.8 oz) 01/27/2025 3:38 PM CDT Height 167.6 cm (5' 6) 01/27/2025 3:38 PM CDT Body Mass Index 45.56 01/27/2025 3:38 PM CDT Plan of Treatment Upcoming Encounters Date Type Department Care Team (Late st Contact Info) Description 03/13/2025 4:40 PM CROSS ROLLER Office Visit [facility] Medical [facility] - Family Medicine - [place] [address] [place] [address] Rachna Orozco, PAC [address] [place] [address] 04/28/2025 4:00 PM CROSS ROLLER Office Visit [facility] - Neurology - [place] [address] [place] [address] Joanne Martins APRN, HIGH SCHOOL GUIDANCE COUNSELOR [address] [place] [address] Health Maintenance Due Date Last Done Comments Hepatitis B Immunization (1 of 3 - 19+ 3-dose series) 1989 Cologuard 09/27/2015 Immunochemical Fecal Occult Blood 09/27/2015 Pneumococcal Immunization (50+ years) (1 of 1 - PCV) 2020 Respiratory Syncytial Virus (RSV) Immunization (Adult) (1 - Risk 50-74 years 1-dose series) 2020 Pap Smear 10/03/2023 10/02/2020 Mammogram 12/26/2025 12/26/2024, 11/29, 11/04/2021, Additional history exists Cervical Cancer Screening (CCS) 10/14/2026 HPV/Cotest 10/14/2026 10/14/2021 Td Immunization Every 10 Years (Adults With 1 Tdap) 01/26/2029 01/26/2019 Colonoscopy 09/14/2030 09/14/2020, 09/14/2020 Colorectal Cancer Screening 09/14/2030 Zoster Immunization Completed 01/27/2022, Hepatitis C Virus (HCV) Screening Completed 08/15/2022 Influenza Immunization Completed 5, 12/15/2023, 12/31/2022, Additional history exists SARS-COV-2 Immunization Completed 12/04/19 25, 12/11/2021, 04/22/2021, Additional history exists Discussion re Starting/Frequency of Mammograms Discontinued 12/26/2024, 12/22/2022, 11/04/2021, Additional history exists Human Papillomavirus (HPV) Immunization Aged Out No longer eligible based on patient's age to complete this topic Meningococcal Immunization (ACWY) Aged Out No longer eligible based on patient's age to complete this topic Rotavirus Immunization Aged Out No lo nger eligible based on patient's age to complete this topic Procedures Procedure Name Priority Date/Time Associated Diagnosis Comments FABIANA SCREENING BILATERAL DIGITAL W CAD W AMANDA Routine 12/26/2024 3:13 PM CDT Screening mammogram for breast cancer HEPATITIS C ANTIBODY Routine 08/15/2022 9:39 AM CDT Need for hepatitis C screening test from Last 3 Months or Most Recently Relevant to Health Maintenance Results * FABIANA SCREENING BILATERAL DIGITAL W CAD W AMANDA (12/26/2024 3:13 PM CDT) Anatomical Region Laterality Modality breast Bilateral Mammography 12/26/2024 3:13 PM CDT Impressions 12/29/2024 2:01 PM CDT IMPRESSION: No mammographic evidence of malignancy. RECOMMENDATION: If there is no interval change in the clinical breast examination, the patient can return in one year for annual screening mammography. Narrative 12/29/2024 2:01 PM CDT Exam: FABIANA SCREENING BILATERAL DIGITAL W CAD W AMANDA. Direct digital imaging using CAD. Tomosynthesis images were obtained and reviewed. Clinical History: Screening. No current complaints. Comparison: 12/22/22 Technique: Two standard digital views of both breasts were performed and reviewed with the aid of R2 CAD. Tomosynthesis images were obtained and reviewed. Findings: There are scattered areas of fibroglandular density. There are no suspicious masses, microcalcifications or areas of nonsurgical architectural distortion. BIRADS 1: Negative Rachna Orozco PAC IMG MAMMO ORDERABLES Fin al Result * HEPATITIS C ANTIBODY (08/15/2022 9:39 AM CDT) hepatitis C antibody 0.13 <1 S/CO [facility] ARCH [id number] B 08/15/2022 11:53 PM CDT [facility] Comment: Signal/Cutoff ratio < 0.79 is Nondetected Signal/Cutoff ratio 0.80-0.99 is Grayzone Signal/Cutoff ratio > 0.99 is Detected Supplemental assays are recommended if signal/cutoff ratio is >/=1.00. Signal/cutoff ratio result >/= 5.00 is 97% predictive of positivity for recombinant immunoblot assay (RIBA) and will be reported to the [place] Department of Public Health as required. Blood Venipuncture / Unknown 08/15/2022 9:39 AM CDT 08/15/2022 9:39 AM CDT Rachna Orozco PAC CHEMISTRY ORDERABLES Fin al Result [facility] [address] [place] [address], from Last 3 Months or Most Recently Relevant to Health Maintenance Insurance [employer] Advance Directives * Full Code (Latest Code Status on File) Date Activated Date Inactivated Comments 07/08/2018 10:49 PM 07/13/2018 7:27 PM CPR-Full Tr eatment: FULL ARREST: Attempt Resuscitation/CPR wit intubation and mechanical ventilation. PRE-ARREST: Use entire range of life support measures to stabilize the patient. Care Teams Offset Platemaker Relationship Specialty Start Date End Date Rachna Orozco PAC [address] [place] [address] PCP - General Physician Blow Machine Tender Starch Spraying 05/19/18 Marin Mullins MD [address] [place] [address] Consulting Physician Neurology 06/17/21 Joanne Martins, HIGHWAY WORKER, HIGH SCHOOL GUIDANCE COUNSELOR [address] [place] [address] Nurse Practitioner Advanced Practice Nurse 12/14/23
--- OUTSIDE RECORDS SUMMARY | 2025-02-27 15:47 | XMS_ITS | Encounter Summary ---
Author Organization [facility] Address [address] [place] [address] Phone Care Team Providers Care Motorcycle Racer Name Role Phone Rachna Orozco Primary Care Provider + Marin Mullins MD Unavailable Joanne Martins APRN, LAUNDRY SUPERVISOR Unavailable [phone]- [phone] Reason for Visit * Reason Comments Medication Refill Encounter Details Date Type Department Care Team (Late st Contact Info) Description 04/07/2020 Refill [facility] - [facility] - [place] [address] [place] [phone] Marin Mullins MD [address] [place] [phone] Medication Refill Social History Tobacco Use Types Packs/Day Years Used Date Smoking Tobacco: Never Smokeless Tobacco: Never Alcohol Use Standard Drinks/Week Comments No 0 (1 standard drink = 0.6 oz pur e alcohol) PHQ-2 Answer Date Recorded PHQ-2 Score 0 11/25/2018 Comments No Sex and Gender Information Value Date Recorded Sex Assigned at Not on file Legal Sex Female 12:12 PM ACCOUNT RELATIONSHIP MANAGER Gender Identity Not on file Sexual Orientation Not on file COVID-19 Exposure Response Date Recorded In the last month, have you been in contact with someone who was confirmed or suspected to have Coronavirus / COVID-19? No / Unsure 04/05/2020 8:39 AM ACCOUNT RELATIONSHIP MANAGER documented as of this encounter Plan of Treatment Upcoming Encounters Date Type Department Care Team (Late st Contact Info) Description 03/13/2025 4:40 PM ACCOUNT RELATIONSHIP MANAGER Office Visit [facility] [address] [place] [address] Rachna Orozco PAC [address] [place] [address] 04/28/2025 4:00 PM ACCOUNT RELATIONSHIP MANAGER Office Visit [facility] Neurology [facility] [address] [place] [address] Joanne Martins APRN, LAUNDRY SUPERVISOR [address] [place] [address] documented as of this encounter Visit Diagnoses Not on filedocumented in this encounter Additional Health Concerns Assessment Noted Time PHQ-9 Depression Total Score: 0 05/19/19 19 1:00 PM ACCOUNT RELATIONSHIP MANAGER documented as of this encounter Care Teams Motorcycle Racer Relationship Specialty Start Date End Date Rachna Orozco, ERNESTO [address] [place] [address] PCP - General Physician Parking Station Attendant 05/19/18 Marin Mullins MD [address] [place] [address] Consulting Physician Neurology 06/17/21 Joanne Martins APRN, LAUNDRY SUPERVISOR [address] [place] [address] Nurse Practitioner Advanced Practice Nurse 12/14/23 documented as of this encounter
--- OUTSIDE RECORDS SUMMARY | 2025-02-27 15:47 | XMS_ITS | Encounter Summary ---
Author Organization [facility] Address [address] [place] [address] Phone Care Team Providers Care Solid Surface Fabricator Name Role Phone Rachna Orozco Primary Care Provider + Marin Mullins MD Unavailable Joanne Martins APRN, [facility] Unavailable [phone]- [phone] Reason for Visit * Reason Comments Medication Refill Encounter Details Date Type Department Care Team (Late st Contact Info) Description 06/01/2022 Refill [facility] - [facility] [address] [place] [phone] Rachna Orozco PAC [address] [place] [address] Medication Refill Social History Tobacco Use Types [...] on file Legal Sex Female 12:12 PM CORE ASSEMBLY SUPERVISOR Gender Identity Not on file Sexual Orientation Not on file documented as of this encounter Miscellaneous Notes * Telephone Encounter - Rachna Orozco PAC - 06/02/2022 1:01 PM CORE ASSEMBLY SUPERVISOR Last vitamin d in range ASSEMBLY SUPERVISOR * Telephone Encounter - Alvina Dacosta RN - 06/02/2022 12:10 PM CST Medication failed the protocol, provider to review and approve the medication order if appropriate. Requested Prescriptions Pending Prescriptions Disp Refills ergocalciferol (VITAMIN D) 31059 UNIT Capsule [Pharmacy Med Name: VITAMIN D2 50,000IU (ERGO) CAP RX] 12 Capsule 0 Sig: TAKE 1 CAPSULE BY MOUTH 1 TIME A WEEK Vitamin Supplements (Adult) Protocol Failed - 06/01/2022 12:39 PM Failed - Vitamin D less than 1.25mg Passed - Visit with relevant provider in past 12 months or upcoming 90 days Recent Visits Date Type Provider Dept 02/10/22 Office Visit Rachna Orozco PAC [facility] 08/12/21 Office Visit Rachna Orozco PAC [facility] Showing recent visits within past 365 days and meeting all other requirements Future Appointments Date Type Provider Dept 08/15/22 Appointment [facility]achna Orozco [facility] Showing future appointments within next 90 days and meeting all other requirements ASSEMBLY SUPERVISOR documented in this encounter Plan of Treatment Upcoming Encounters Date Type Department Care Team (Late st Contact Info) Description 03/13/2025 4:40 PM CORE ASSEMBLY SUPERVISOR Office Visit [facility] - [facility] [address] [place] [address] Rachna Orozco PAC [address] [place] [address] 04/28/2025 4:00 PM CORE ASSEMBLY SUPERVISOR Office Visit [facility] - Neurology [facility] [address] [place] [phone] Joanne Martins APRN, CERAMIC TILE INSTALLER [address] [place] [address] documented as of this encounter Visit Diagnoses Diagnosis Low vitamin D level documented in this encounter Additional Health Concerns Assessment Noted Time PHQ-9 Depression Total Score: 0 06/06/19 21 9:03 AM CORE ASSEMBLY SUPERVISOR documented as of this encounter Care Teams Solid Surface Fabricator Relationship Specialty Start Date End Date Rachna Orozco PAC [address] [place] [address] PCP - General Physician Tailing Machine Operator 05/19/18 Marin Mullins MD [address] [place] [address] Consulting Physician Neurology 06/17/21 Joanne Martins APRN, CERAMIC TILE INSTALLER [address] [place] [address] Nurse Practitioner Advanced Practice Nurse 12/14/23 documented as of this encounter
--- OUTSIDE RECORDS SUMMARY | 2025-02-27 15:47 | XMS_ITS | Encounter Summary ---
Author Organization [facility] Address [address] [place] [address] Phone Care Team Providers Care Cable Worker Helper Name Role Phone Rachna Orozco Primary Care Provider + Marin Mullins MD Unavailable Joanne Martins APRN, VISUAL COORDINATOR Unavailable [phone]- [phone] Reason for Visit * Reason Comments Medication Refill Encounter Details Date Type Department Care Team (Late st Contact Info) Description 02/25/2025 Refill [facility] - Neurology - [facility] [address] [place] [phone] Joanne Martins, NEIL, VISUAL COORDINATOR [address] [place] [address] Medication Refill Social History Tobacco Use Types Packs/Day Years Used Date Smoking Tobacco: Never Smokeless Tobacco: Never Alcohol Use Standard Drinks/Week Comments No 0 (1 standard drink = 0.6 oz pur e alcohol) [facility] Utilities Answer Date Recorded In the past 12 months has [employer] electric, gas, oil, or water company threatened [...] How often do you attend chur or anglican services? 1 to 4 times per year 12/13/2023 Do you belong to any clubs o r organizations such as bahai groups, unions, fraternal or athletic groups, or [...] Total Score - Questions 1-9 0 03/30 [facility] - Occupational Stress Questionnaire Answer Date Recorded [...] place to sleep or slept in a long-term (including now)? No 07/08/2023 Housing Stability Vital Sign Answer [place] e Recorded In the last 12 months, was t here a time when you were not able to pay the mortgage or rent on time? No 12/13/2023 Number of Times Moved in the Last Year Not on fi le 12/13/2023 At any time in the past 12 m [facility], were you homeless or living in a long-term (including now)? No 12/13/2023 Education Answer Date Recorded What is the highest level of school you have completed or the highest degree you have received? 12th grade 08/15/2022 Sexually Active Control Partners Comments Not Currently Comments No Sex and Gender Information Value Date Recorded Sex Assigned at Not on file Legal Sex Female 12:12 PM DRAIN TILE MACHINE OPERATOR Gender Identity Not on file Sexual Orientation Not on file documented as of this encounter Miscellaneous Notes * Telephone Encounter - Laly Cortez RN - 02/27/2025 9:07 AM CST Medication failed the protocol, provider to review and approve the medication order if appropriate. Requested Prescriptions Pending Prescriptions Disp Refills Lacosamide 150 MG Tablet [Pharmacy Med Name: LACOSAMIDE 150MG TABLETS] 180 Tablet Sig: TAKE 1 TABLET BY MOUTH TWICE DAILY Not Delegated - Anticonvulsants Excluding Benzodiazepines Protocol Failed - 02/27/2025 9:07 AM Failed - This refill cannot be delegated Passed - Visit with relevant provider in past 12 months or upcoming 90 days Recent Visits Date Type Provider Dept 01/27/25 Office Visit Joanne Martins APRN, [facility] Neurology [facility] 10/24/24 Office Visit Joanne Martins APRN, [facility] Neurology [facility] Showing recent visits within past 365 days and meeting all other requirements Future Appointments Date Type Provider Dept 03/13/25 Appointment [facility] 04/28/25 Appointment Joanne Martins APRN, [facility]rology [place] [facility] Showing future appointments within next 90 days and meeting all other requirements N TILE MACHINE OPERATOR documented in this encounter Plan of Treatment Upcoming Encounters Date Type Department Care Team (Late st Contact Info) Description 03/13/2025 4:40 PM DRAIN TILE MACHINE OPERATOR Office Visit [facility] - Family Medicine [facility] [address] [place] [address] Rachna Orozco PAC [address] [place] [address] 04/28/2025 4:00 PM DRAIN TILE MACHINE OPERATOR Office Visit [facility] Neurology [facility] [address] [place] [address] Joanne Martins APRN, VISUAL COORDINATOR [address] [place] [address] documented as of this encounter Visit Diagnoses Diagnosis Seizures Other convulsions documented in this encounter Additional Health Concerns Assessment Noted Time PHQ-9 Depression Total Score: 0 04/10/19 24 3:43 PM DRAIN TILE MACHINE OPERATOR documented as of this encounter Care Teams Cable Worker Helper Relationship Specialty Start Date End Date Rachna Orozco PAC [address] [place] [address] PCP - General Physician [place] 05/19/18 Marin Mullins MD [address] [place] [address] Consulting Physician Neurology 06/17/21 Joanne Martins APRN, VISUAL COORDINATOR [address] [place] [address] Nurse Practitioner Advanced Practice Nurse 12/14/23 documented as of this encounter
--- OUTSIDE RECORDS SUMMARY | 2025-02-27 15:47 | XMS_ITS | Data Portability ---
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 Plan of Treatment Reminders Order Date Submit Date Provider Last Modified By Organization Details Last Modified Time Details Appointments None recorded. Lab CBC w/ auto diff 2022 023 [facility] (Lab), [address] , [place], [address], 3 03:40:26 beta-HCG, quantitativ e, serum or plasma 2022 023 [facility] (Lab), [address], [place], [address], 3 03:40:27 beta-HCG, quantitativ e, serum or plasma 2022 023 [facility] (Lab), [address], [place], [address], 3 05:32:01 test, urine 2022 023 [email or web address] 1 [facility] (Lab), [address], [place], [address], 3 20:42:57 TSH, serum or plasma 2022 023 [facility] (Lab), [address], [place], [address], 3 05:32:02 hormone panel, serum or plasma 2022 023 [facility] (Lab), [address], [place], [address], 3 05:32:01 Referral None recorded. Procedures None recorded. Surgeries None recorded. Imaging US, transvagina l 2022 023 [email or web address] [facility], [address], [place], [address], 3 22:03:47 US, pelvis 2022 023 [email or web address] [facility], [address], [place], [address], 3 21:48:12 US, transvagina l 2022 023 [email or web address] [facility], [address], [place], [address], 3 21:48:12 Medication Orders None recorded. Patient TargetsNo targets recorded. Patient InstructionsNo instructions recorded. Reason for Referral None Reported. Results Created Date Observation Date Name Description Value Unit Range Abnormal Flag Note LastModifiedBy Organization Detail LastModifiedTime 04/08/19 23 04/08/2022 BHCG, QUANT ITATI VE B-HCG 0.3 mIU/m L This assay was perfo rmed using [employer] n reage nts and test kits. Value s obtai tho with other assay metho ds or kits canno t be used inter mota eably . Refer ence Range s: Non-p regna nt, preme nopau betsy women : 0.0-5 .3 mIU/m L Postm enopa usal women : 0.0-7 .0 mIU/m L Trina l Pregn josep: Gesta sonali l Age bHCG Conc. - mIU/m L 3 Weeks 5.8 - 71.7 4 Weeks 9.5 - 750 5 Weeks 217-7 138 6 Weeks 158 - 31,79 5 7 Weeks 3,697 - 162,5 63 8 Weeks 32,06 5 - 149,5 71 9 Weeks 63,80 3 - 151,4 10 10 Weeks 46,50 9 - 186,9 77 12 Weeks 27,83 2 - 210,6 12 14 Weeks 13,95 0 - 62,53 0 15 Weeks 12,03 9 - 70,97 1 16 Weeks 9,040 - 56,45 1 17 Weeks 8,175 - 55,86 8 18 Weeks 8,099 - 58,17 6 Not Available [facility] (Lab) [address] [facility], [place], [address], 04/09/2022 05:32:01 04/08/19 23 04/08/2022 FSH, LH, ESTRA DIOL estradiol 45.7 pg/mL This assay was perfo rmed using [employer] reage nts and test kits. Value s obtai tho with other assay metho ds or kits canno t be used inter [facility] . Femal e Estra diol Range s: Folli cular phase 12.4- 233 pg/mL Ovula tion phase 41.0- 398 pg/mL Lutea l phase 22.3- 341 pg/mL Postm enopa usal< 5-138 pg/mL Healt hy Pregn ant Women 1st Trime ster1 54-32 43 pg/mL 2nd Trime ster1 561-2 1280 pg/mL 3rd Trime ster8 525-> 20947 pg/mL Not Available [facility] (Lab) [address] [facility], [place], [address], 04/09/2022 05:32:01 04/08/19 23 04/08/2022 FSH, LH, ESTRA DIOL FSH 41.1 mIU/m L This assay was perfo rmed using [employer] n reage nts and test kits. Value s obtai tho with other assay metho ds or kits canno t be used inter [facility] . Femal es Folli cular : 3.5-1 2.5 mIU/m L Ovula tion: 4.7-2 1.5 mIU/m L Lutea l: 1.7-7 .7 mIU/m L Postm enopa use: 25.8- 134.8 mIU/m L Not Available [facility] (Lab) [address], [place], [address], 04/09/2022 05:32:01 04/08/19 23 04/08/2022 FSH, LH, ESTRA DIOL LH 31.4 mIU/m L This assay was perfo rmed using [employer] reage nts and test kits. Value s obtai tho with other assay metho ds or kits canno t be used inter mota eably . Femal es Mid-F ollic ular: 2.4-1 2.6 mIU/m L Mid-C ycle: 14.0- 95.6 mIU/m L Mid-L uteal : 1.0-1 1.4 mIU/m L Postm enopa use: 7.7-5 8.5 mIU/m L Not Available [facility] (Lab) [address], [place], [address], 04/09/2022 05:32:01 04/08/19 23 04/08/2022 TSH TSH 3.44 uIU/m L 0.30-5 .33 Not Available [facility] (Lab) [address], [place], [address], 04/09/2022 05:32:02 04/08/19 23 04/08/2022 pregn josep test, urine HCG negati ve Not Available [facility] [address], [place], [address], 04/08/2022 18:42:35 06/11/19 23 06/10/2022 CBC W/DIF F WBC 6.3 10'3/ uL 3.6-10 .2 Not Available [facility] (Lab) [address], [place], [address], 06/11/2022 03:40:26 06/11/19 23 06/10/2022 CBC W/DIF F RBC 3.52 10'6/ uL (based on docume nted legal sex) 4.10-5 .30 low Not Available [facility] (Lab) [address], [place], [address], 06/11/2022 03:40:26 06/11/19 23 06/10/2022 CBC W/DIF F HGB 10.3 g/dL (based on docume nted legal sex) 11.9-1 5.8 low Not Available [facility] (Lab) [address], [place], [address], 06/11/2022 03:40:26 06/11/19 23 06/10/2022 CBC W/DIF F HCT 33.4 % (based on docume nted legal sex) 37.4-4 8.3 low Not Available [facility] (Lab) [address], [place], [address], 06/11/2022 03:40:26 06/11/19 23 06/10/2022 CBC W/DIF F MCV 94.9 fL 82.0-9 9.0 Not Available [facility] (Lab) [address], [place], [address], 06/11/2022 03:40:26 06/11/19 23 06/10/2022 CBC W/DIF F MCH 29.3 pg 27.0-3 3.0 Not Available [facility] (Lab) [address], [place], [address], 06/11/2022 03:40:26 06/11/19 23 06/10/2022 CBC W/DIF F MCHC 30.8 g/dL 32.0-3 6.0 low Not Available [facility] (Lab) [address], [place], [address], 06/11/2022 03:40:26 06/11/19 23 06/10/2022 CBC W/DIF F RDW 14.7 % 11.0-1 5.0 Not Available [facility] (Lab) [address], [place], [address], 06/11/2022 03:40:26 06/11/19 23 06/10/2022 CBC W/DIF F plt 353 10'3/ uL 150-45 0 Not Available [facility] (Lab) [address], [place], [address], 06/11/2022 03:40:26 06/11/19 23 06/10/2022 CBC W/DIF F MPV 11.8 fL 9.8-12 .7 Not Available [facility] (Lab) [address], [place], [address], 06/11/2022 03:40:26 06/11/19 23 06/10/2022 CBC W/DIF F NRBC's 0.0 % 0 Not Available [facility] (Lab) [address], [place], [address], 06/11/2022 03:40:26 06/11/19 23 06/10/2022 CBC W/DIF F absolute NRBCs 0.0 10'3/ uL 0 Not Available [facility] (Lab) [address], [place], [address], 06/11/2022 03:40:26 06/11/19 23 06/10/2022 CBC W/DIF F neutrophils 35.6 % 37.0-7 2.0 low Not Available [facility] (Lab) [address], [place], [address], 06/11/2022 03:40:26 06/11/19 23 06/10/2022 CBC W/DIF F lymphocytes 41.8 % 16.0-4 8.0 Not Available [facility] (Lab) [address], [place], [address], 06/11/2022 03:40:26 06/11/19 23 06/10/2022 CBC W/DIF F monocytes 10.3 % 4.0-14 .0 Not Available [facility] (Lab) [address] [facility], [place], [address], 06/11/2022 03:40:26 06/11/19 23 06/10/2022 CBC W/DIF F eosinophils 11.2 % 0.0-9. 0 high Not Available [facility] (Lab) [address] [facility], [place], [address], 06/11/2022 03:40:26 06/11/19 23 06/10/2022 CBC W/DIF F basophils 0.9 % 0.0-2. 0 Not Available [facility] (Lab) [address] [facility], [place], [address], 06/11/2022 03:40:26 06/11/19 23 06/10/2022 CBC W/DIF F immature granulocytes 0.2 % no define d refere nce range Not Available [facility] (Lab) [address] [facility], [place], [address], 06/11/2022 03:40:26 06/11/19 23 06/10/2022 CBC W/DIF F absolute neutrophils 2.3 10'3/ uL 1.1-6. 0 Not Available [facility] (Lab) [address] [place], [address], 06/11/2022 03:40:26 06/11/19 23 06/10/2022 CBC W/DIF F absolute lymphocytes 2.7 10'3/ uL 0.7-3. 4 Not Available [facility] (Lab) [address] [place], [address], 06/11/2022 03:40:26 06/11/19 23 06/10/2022 CBC W/DIF F absolute monocytes 0.7 10'3/ uL 0.3-1. 0 Not Available [facility] (Lab) [address] [facility], [place], [address], 06/11/2022 03:40:26 06/11/19 23 06/10/2022 CBC W/DIF F absolute eosinophils 0.7 10'3/ uL 0.0-0. 6 high Not Available [facility] (Lab) [address] [facility], [place], [address], 06/11/2022 03:40:26 06/11/19 23 06/10/2022 CBC W/DIF F absolute basophils 0.1 10'3/ uL 0.0-0. 1 Not Available [facility] (Lab) [address] [facility], [place], [address], 06/11/2022 03:40:26 06/11/19 23 06/10/2022 CBC W/DIF F absolute immature granulocytes 0.0 10'3/ uL 0.00-0 .10 2022 2:31 AM: P indic ates parti al resul ts on a panel have been relea sed. Addit ional resul ts will follo w. 2022 2:31 AM: This resul t has been final verif ied. No addit ional or mota ed resul ts are expec sylvester. Not Available [facility] (Lab) [address] [facility], [place], [address], 06/11/2022 03:40:26 06/11/1906/10/2022 BHCG, QUANT ITATI VE B-HCG <0.2 mIU/m L This assay was perfo rmed using [employer] n reage nts and test kits. Value s obtai tho with other assay metho ds or kits canno t be used inter [facility] . Refer ence Range s: Non-p regna nt, preme nopau betsy women : 0.0-5 .3 mIU/m L Postm enopa usal women : 0.0-7 .0 mIU/m L Trina l Pregn josep: Gesta sonali l Age bHCG Conc. - mIU/m L 3 Weeks 5.8 - 71.7 4 Weeks 9.5 - 750 5 Weeks 217-7 138 6 Weeks 158 - 31,79 5 7 Weeks 3,697 - 162,5 63 8 Weeks 32,06 5 - 149,5 71 9 Weeks 63,80 3 - 151,4 10 10 Weeks 46,50 9 - 186,9 77 12 Weeks 27,83 2 - 210,6 12 14 Weeks 13,95 0 - 62,53 0 15 Weeks 12,03 9 - 70,97 1 16 Weeks 9,040 - 56,45 1 17 Weeks 8,175 - 55,86 8 18 Weeks 8,099 - 58,17 6 Not Available [facility] (Lab) [address], [place], [address], 06/11/2022 03:40:27 05/13/19 23 05/13/2022 US, pelvi s No observ ation record ed. [email or web address] [facility] [address], [place], [address], 05/13/2022 17:23:51 05/13/19 23 05/13/2022 US, trans vagin al No observ ation record ed. [email or web address] [facility] [address], [place], [address], 05/13/2022 17:23:42 05/13/19 23 05/13/2022 US, pelvi s No observ ation record ed. [email or web address] [address], [place], [address], 06/10/2022 15:46:08 06/11/19 23 06/10/2022 US, trans vagin al No observ ation record ed. [email or web address] [facility] [address], [place], [address], 06/10/2022 18:00:19 06/11/19 23 06/10/2022 US, trans vagin al No observ ation record ed. Eliana [address] [place] [address], [address], 06/12/2022 17:32:59 Result Notes None recorded. Procedures Surgical History Date Name Laterality Status Provider Name and Address Organization Details Recorded Time 10/15/19 22 Date of Last Pap Smear completed [facility] 06/10/2022 15:32:35 09/15/19 21 completed [facility] 10/02/2020 19:22:37 09/15/19 21 Date of Last Colonoscopy completed Julisa [facility] [facility] 10/14/2021 11:09:28 09/15/19 21 Colonoscopy completed [facility] 10/02/2020 19:26:01 03/30/19 04 cholecystectomy completed [facility] 04/08/2022 17:22:51 Imaging Results None recorded. Procedure Notes None recorded. Medical Equipment None Reported. Allergies No known drug allergies Medications Name Sig Start Date Stop Date Status Note LastModified by Organization Details LastModified Time tizanidine 2 mg tablet TAKE 1 TO 2 TABLETS BY MOUTH EVERY 6 TO 8 HOURS NEEDED FOR MUSCLE SPASM 04/08 completed Not Available Not Available Not Available metronidazo le 0.75 % (37.5 mg/5 gram) vaginal gel INSERT 1 APPLICATO RFUL VAGINALLY EVERY NIGHT AT BEDTIME FOR 5 DAYS 04/08 completed Not Available Not Available Not Available prednisone 20 mg tablet 10/14 completed Not Available Not Available Not Available acetaminoph en 300 mg-codeine 30 mg tablet TAKE 1 TABLET BY MOUTH EVERY 4 HOURS NEEDED FOR MODERATE TO SEVERE PAIN active Not Available Not Available No t Available levothyroxi ne 50 mcg tablet TAKE 1 TABLET BY MOUTH DAILY active Not Available Not Available No t Available levetiracet am 750 mg tablet TAKE 2 TABLETS BY MOUTH TWICE DAILY FOR 2 WEEKS 10/14 completed Not Available Not Available Not Available ergocalcife rol (vitamin D2) 1,250 mcg (50,000 unit) capsule TAKE 1 CAPSULE BY MOUTH 1 TIME A WEEK active Not Available Not Available No t Available topiramate 100 mg tablet TAKE 1 TABLET BY MOUTH TWICE DAILY active Not Available Not Available No t Available levetiracet am 1,000 mg tablet TAKE 1 TABLET BY MOUTH TWICE DAILY active Not Available Not Available No t Available FeroSul 325 mg (65 mg iron) tablet TAKE 1 TABLET BY MOUTH TWICE DAILY 10/14 completed Not Available Not Available Not Available lacosamide 150 mg tablet TAKE 1 TABLET BY MOUTH TWICE DAILY active Not Available Not Available No t Available Xarelto 20 mg tablet TAKE 1 TABLET BY MOUTH EVERY DAY active Not Available Not Available No t Available Vitals Date Recorded Body height Body mass index (BMI) Body weight Systolic And Diastolic Provider Name and Address Organization Details Last Updated DateTime 04/08/2022 165.74 cm 43.9 kg/m2 321670.57 g 130/83 mm[Hg] Jenelle Noble [facility] 04/08/2022 17:21:57 Date Recorded Body height Body mass index (BMI) Body weight Systolic And Diastolic Provider Name and Address Organization Details Last Updated DateTime 06/10/2022 165.74 cm 44.7 kg/m2 811628.53 g 119/74 mm[Hg] Jenelle Noble [facility] 06/10/2022 15:39:27 Date Recorded Body height Systolic And Diastolic Provider Name and Address Organization Details Last Updated DateTime 06/16/2022 165.74 cm 115/77 mm[Hg] Irma Huitron [facility] 06/16/2022 10:20:05 Social History Question Answer Notes LastModified by Organizat ion Details LastModified Time Tobacco Smoking Status Never Smoker Rob Vanegas [facility] 06/16/2022 10:10:48 Do You Have An Advance Directive? No Information n ot available 10/14/2021 If You Are , What Was Your Level Of Alcohol Consumption Prior To ? None [email or web address] Information not available 06/16/2022 Are You Blind Or Do You Have Difficulty Seeing? No [email or web address] Information n ot available 10/02/2020 What Is Your Level Of Caffeine Consumption? Occasional Information not available 10/14/2021 How Much Tobacco Do You Chew? None Information not available 10/14/2021 In The 14 Days Before Symptom Onset, Have You Had Close Contact With A Laboratory-confirm ed COVID-19 While That Case Was Ill? No [email or web address] Information n ot available 10/02/2020 In The 14 Days Before Symptom Onset, Have You Had Close Contact With A Person Who Is Under Investigation For COVID-19 While That Person Was Ill? No Information not available 10/02/2020 Have You Been To An Area Known To Be High Risk For COVID-19? No [email or web address] Information not available 10/02/2020 Are You Deaf Or Do You Have Serious Difficulty Hearing? No Information not available 10/02/2020 What Type Of Diet Are You Following? REGULAR Information n ot available 10/14/2021 What Is The Highest Grade Or Level Of School You Have Completed Or The Highest Degree You Have Received? [id number] Information not available 10/14/2021 Are There Any Guns Present In Your Home? No Information not available 10/14/2021 Do You Use Protection During Sex? Always Information not available 10/14/2021 Do You Use Your Seat Belt Or Car Seat Routinely? Yes [email or web address] Information not available 10/02/2020 Do You Have Smoke And Carbon Monoxide Detectors In Your Home? Yes Information not available 10/02/2020 How Much Tobacco Do You Smoke? No Information not available 10/14/2021 Do You Use Sunscreen Routinely? No Information not available 10/14/2021 Has Tobacco Cessation Counseling Been Provided? No [email or web address] Information not available 06/16/2022 Have You Used IV Drugs? No Information not available 10/14/2021 Do You Have Difficulty Walking Or Climbing Stairs? No [email or web address] Information not available 06/16/2022 Sex: Unknown Functional Status Question Answer Note LastModified by Organizat ion Details LastModified Time Do you use any illicit or recreational drugs? No [email or web address] Information not available 10/02/2020 Do you or have you ever used any other forms of tobacco or nicotine? No [email or web address] Information not available 06/16/2022 What is your level of alcohol consumption? None [email or web address] Information not available 10/02/2020 Are you able to walk independently without assistance or assistive devices? YESWOREST [email or web address] Information not available 10/02/2020 Are you able to care for yourself independently? 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 No [email or web address] Information not available 06/16/2022 What is your exercise level? Occasional Information not available 10/14/2021 Mental Status Question Answer Note LastModified by Organization D etails LastModified Time Do you feel stressed (tense, restless, nervous, or anxious, or unable to sleep at night)? [id number] Information not available 10/14/2021 Family History Relationship Description Onset Age of this Age Resolved Age Notes LastModified by Organization Details LastModified Time Father No current problems or disability Not available 08/2020 19:25:06 Mother No current problems or disability [email or web address] Not available 08/2020 19:25:06 Medical History Condition Response Allergies (Food, seasonal, environmental ) Y Other Y Breast Cancer N Drug/Latex Allergies/Reactions N Blood Transfusion N Dermatologic Disorders N Lung Disease N Defects or Inherited Disease N Breast Problem N Gestational Diabetes N Hematologic disorders N Anesthesia Complications N History of STI N Deep Vein Thrombosis Y Polycystic ovary syndrome N Anxiety Disorder Y Autoimmune disease N Arthritis N Infertility N Polyps N Acid Reflux (GERD) N History of abnormal pap N Cancer N Stroke N Varicosities N Neurologic/Epilepsy Y Endometriosis N High Cholesterol N Headaches Y Fibromyalgia N Kidney Disease N Heart Problems N Kidney or Bladder Problems N Thyroid Problems N GI Problems N Eating Disorder N Anemia N Art (IVF or FET) N Psychiatric Illness N Ovarian Cancer N Diabetes N Pulmonary (TB, Asthma) N Hepatitis/Liver Disease N No Past Medical History N Eczema N Urinary Tract Infection N Abuse/Domestic Violence N Asthma Y Trauma/Violence N Depression/ depression Y Heart Disease N Pre-Eclampsia N Hypertension N Osteoporosis N Thrombophilias N Gynecological History Statement/Question Response Date of Last Mammogram Flow Moderate Date of LMP 02/08/2022 N Was last menstrual period normal N STIs/STDs N Date of Last Colonoscopy 09/14/2020 None Desired Control Method None On BCP's at Conception? N HPV Vaccine N Duration of Flow (days) 7 Current Control Method None Age at First Child 20 Are cycles usually normal N Sexually Active? Y Menses Monthly Y Age of first menstrual cycle 15 Date of Last Pap Smear 10/14/2021 Sexual Problems? N LMP Definite 09/14/2020 N Obstetrics History GPAL:G 3 P 2 0 1 2 Type Value Full Term 2 Spontaneous 1 Living 2 Total 3 Past Encounters Encounter ID Performer Location Encounter Start Date Encounter Closed Date Diagnosis/Indication Diagnosis SNOMED-CT Code Diagnosis ICD10 Code Diagnosis IMO Codes Diagnosis Note [id number] Monica Carrera CNM [facility] [address] [address] 10/02/2020 10:03:22 10/04/2020 10:59:20 Gynecologic examination 76631503 Z01.419 Z11.51 Take Calcium with Vitamin D 12-1500mg daily. Do monthly self breast exams. It is advised to get annual flu shot in the fall and she could obtain at [facility] or [facility] clinic. If you haven't received the Tdap vaccine in the last 10 years you should obtain one as well. Have mammogram yearly, bone density every 2-3 years and colonoscop y every 5-10 years depending on findings and history. Discussed likelihood of spontaneou s at 50. She is still having regular cycles and no menopausal symptoms. Discussed risks of at 50 along with risks related to medication s. Pt is not interested in fertility treatment. I have strongly encouraged use of vitamins with dha and folic acid if is even a slight considerat ion. She is aware that we would refer to [facility]. Engage in daily exercise of low impact aerobic exercise 45-60 minutes 4-5 times weekly. Avoid tobacco and illicit drugs as well as using moderation with alcohol intake less than 1-2 8 oz beverages daily. This lifestyle behavior pattern will lead to less health conditions and longer life span. If BMI greater than 25 weight watchers or dietary consult advised. Questions have been answered. Patient appears to understand instructio ns, but if you have any further questions call or respond to this email. [id number] Nathalie Dhaliwal , [facility] [address],[facility] [place] [address] 10/14/2021 10:45:38 10/14/2021 12:59:43 Gynecologic examination [id number] Z01.419 Take Calcium with Vitamin D 12-1500mg daily. Do monthly self breast exams. It is advised to get annual flu shot in the fall and she could obtain at [facility] or [facility] care clinic. If you haven't received the Tdap vaccine in the last 10 years you should obtain one as well. Have mammogram yearly, bone density every 2-3 years and colonoscop y every 5-10 years depending on findings and history. Engage in daily exercise of low impact aerobic exercise 45-60 minutes 4-5 times weekly. Avoid tobacco and illicit drugs as well as using moderation with alcohol intake less than 1-2 8 oz beverages daily. This lifestyle behavior pattern will lead to less health conditions and longer life span. If BMI greater than 25 weight watchers or dietary consult advised. Questions have been answered. Patient appears to understand instructio ns, but if you have any further questions call or respond to this email Pap/hpv sent STD Screen sent Genetic Screen discussed Colon Screen UTD PCP Dexa Screen due age 60yo Routine Labs UTD PCPMammo ordered [id number] Monica Carrera CNM [facility] [address],[place] [address] 04/08/2022 16:49:18 04/09/2022 16:09:05 Missed period [id number] N92.5 Last period 2 months ago. Typically has regular cycles. She is sexually active. UPT negative today. Will check labs and u/s then follow up. We will determine a plan based on results. Amenorrhea [id number] N91. 2 [id number] Gennaro Enrique MD [facility] [address],[place] [address] 05/13/2022 15:32:52 05/13/2022 16:43:29 Irregular periods 29941071 N92.6 [id number] Monica Carrera CNM [facility] [address],[place] [address] 06/10/2022 15:28:01 06/11/2022 17:29:21 Abnormal uterine bleeding [id number] 9100 N93.9 Reviewed labs and ultrasound . Repeat ultrasound today. Lining back to 12mm even after 2 heavy and long cycles. I have recommende d EMB. Pt agrees and will schedule. CBC today along with hcg. [id number] Gennaro Enrique MD [facility] [address] [address] 06/10/2022 15:56:53 06/10/2022 16:38:26 Abnormal uterine bleeding [id number] 9100 N93.9 [id number] CARIE Ferguson [facility] [address],[place] [address] 06/16/2022 10:10:37 06/16/2022 14:24:13 Abnormal uterine bleeding [id number] 9100 N93.9 Reviewed recent [employer] sed AUB, discussed the perimenopa usal transition , we talked about fibroidsWe reviewed her hx and medication s today, on xareltoRec ommend RAJ/ consult, she will schedule thisED precaution s discussed. No notify the office with any heavy vaginal bleeding, pelvic pain, etc Time spent in visit is a total of 15 mins with at least 50% of visit consisting of counseling and review of plan of care. Health Concerns Section Related Observation LastModified by Organization Detai ls LastModified Time None Recorded Concern Status LastModified by Organization Details LastModified Time None Recorded Advance Directives Directive N: Payers Insurance Date Sequence Insurance Name Policy Number Policy Reece Covered Member ID Reece Member ID Guarantor Name 05/11/2022 1 [place] [place] [employer] Myrtho Houston [id number] Myrtho Houston 01/19/2024 1 [facility] (MEDICAID HMO) [id number] Myrtho Houston [id number] Myrtho Houston Notes Date Note Type Note Provider Name and Address Organization Details Recorded Time 04/08/2022 text/html LMP 11-12States cycles are regular and monthly. Usually last 5 days with normal flow.Pt is sexually active. No contraception used. Jenelle anderson, [facility] 04/08/2022 18:41:54 06/10/2022 text/html ROS as noted in the HPI Started cycle on Apr 3 x 2 weeksThen started on Apr 23 x 7-10 daysNot currently bleeding Monica Carrera justin [facility] 06/16/2022 10:30:06 06/16/2022 text/html 51yoPresents for further evaluation of AUBHad amenorrhea x 2 months, then had had heavy bleeding x 3 weeks in AprilPrior to this periods were very regularNo current vaginal bleedingDenies any pelvic pain, discharge, itching, n/v/f, or flu-like symptomsMedical hx: seizures, DVT in 2018 - on CARIE Rivera [address], [place], [address], [facility] 06/16/2022 14:06:25 OBGyn Episode Ob Episode Information Episode Created Date Number of Fetuses Patient Bloodtype Patient rh Status Prepregnancy Weight lbs Domestic Partner Domestic Partner Phone Father Name [facility] Nurse Practitioner Status 10/03/19 21 1 CLOSED Fetus Data First Name Last Name Admitted to NICU Weight (g) Sex Living Outcome Pediatric Complications Fetus ID Race Codes Race Delivery Type , Spontane ous [id number] Good Calculation Initial Good Date Initial Exam Date Initial Exam Provider Initial Ultrasound Date Last Menstrual Period Date Ultra Sound Weeks Gestation 0 Eighteen To Twenty Week Good Update Ultra Sound Date Fundal Height At Umbil Quickening Date Ultra Sound Latest Weeks Gestation Final Good Confirmed By Final Good Confirmed Date Final Good Date Ultra Sound Latest Days Gestation 0 0 Menstrual History Last Menstrual Date Menses Monthly On Bcp Conception Prior Menses Frequency Hcg Plus Date Menarche Onset Age Delivery Information Delivery Date Delivery Type Labor Anesthesia Weeks Gestation Incision Type Labor Labor Length Hrs Delivered By Post Complications Tubal Sterilization Discharge Date Comments 7 Discharge Information Feeding Method Contraceptive Method Maternal HG B and HCT Levels Ob Episode Information Episode Created Date Number of Fetuses Patient Bloodtype Patient rh Status Prepregnancy Weight lbs Domestic Partner Domestic Partner Phone Father Name [facility] Nurse Practitioner Status 10/03/19 21 1 CLOSED Fetus Data First Name Last Name Admitted to NICU Weight (g) Sex Living Outcome Pediatric Complications Fetus ID Race Codes Race Delivery Type 3061.74 6 F Prematur [place] 54863 Vaginal Delivery Good Calculation Initial Good Date Initial Exam Date Initial Exam Provider Initial Ultrasound Date Last Menstrual Period Date Ultra Sound Weeks Gestation 0 Eighteen To Twenty Week Good Update Ultra Sound Date Fundal Height At Umbil Quickening Date Ultra Sound Latest Weeks Gestation Final Good Confirmed By Final Good Confirmed Date Final Good Date Ultra Sound Latest Days Gestation 0 0 Menstrual History Last Menstrual Date Menses Monthly On Bcp Conception Prior Menses Frequency Hcg Plus Date Menarche Onset Age Delivery Information Delivery Date Delivery Type Labor Anesthesia Weeks Gestation Incision Type Labor Labor Length Hrs Delivered By Post Complications Tubal Sterilization Discharge Date Comments 1 36 true Discharge Information Feeding Method Contraceptive Method Maternal HG B and HCT Levels Ob Episode Information Episode Created Date Number of Fetuses Patient Bloodtype Patient rh Status Prepregnancy Weight lbs Domestic Partner Domestic Partner Phone Father Name [facility] Nurse Practitioner Status 10/03/19 21 1 CLOSED Fetus Data First Name Last Name Admitted to NICU Weight (g) Sex Living Outcome Pediatric Complications Fetus ID Race Codes Race Delivery Type 3005.04 7 F Prematur e 27254 Vaginal Delivery Good Calculation Initial Good Date Initial Exam Date Initial Exam Provider Initial Ultrasound Date Last Menstrual Period Date Ultra Sound Weeks Gestation 0 Eighteen To Twenty Week Good Update Ultra Sound Date Fundal Height At Umbil Quickening Date Ultra Sound Latest Weeks Gestation Final Good Confirmed By Final Good Confirmed Date Final Good Date Ultra Sound Latest Days Gestation 0 0 Menstrual History Last Menstrual Date Menses Monthly On Bcp Conception Prior Menses Frequency Hcg Plus Date Menarche Onset Age Delivery Information Delivery Date Delivery Type Labor Anesthesia Weeks Gestation Incision Type Labor Labor Length Hrs Delivered By Post Complications Tubal Sterilization Discharge Date Comments 1 36 true Discharge Information Feeding Method Contraceptive Method Maternal HG B and HCT Levels
--- OUTSIDE RECORDS SUMMARY | 2025-02-27 15:47 | XMS_ITS | Encounter Summary ---
Author Organization [facility] Address [address] [place] [address] Phone Care Team Providers Care Botany Teacher Name Role Phone Rachna Orozco Primary Care Provider + Marin Mullins MD Unavailable [phone] Joanne Martins APRN, SCIENTIFIC DIVER Unavailable [phone] Reason for Visit * Reason Comments Medication Refill Encounter Details Date Type Department Care Team (Late st Contact Info) Description 04/15/2021 Refill [facility] - Neurology [facility] [address] [place] [phone] Marin Mullins MD [address] [place] [phone] Medication Refill Social History Tobacco Use Types Packs/Day Years Used Date Smoking Tobacco: Never Smokeless Tobacco: Never Alcohol Use Standard Drinks/Week Comments No 0 (1 standard drink = 0.6 oz pur e alcohol) PHQ-2 Answer Date Recorded Total Score - Questions 1-9 0 11/2020 Education Answer Date Recorded What is the highest level of school you have completed or the highest degree you have received? Associate degree: academic program 05/31/2020 Sexually Active Control Partners Comments Not Currently Comments No Sex and Gender Information Value Date Recorded Sex Assigned at Not on file Legal Sex Female 12:12 PM FUSING MACHINE TENDER Gender Identity Not on file Sexual Orientation Not on file COVID-19 Exposure Response Date Recorded In the last month, have you been in contact with someone who was confirmed or suspected to have Coronavirus / COVID-19? No / Unsure 04/16/2021 8:21 AM FUSING MACHINE TENDER documented as of this encounter Functional Status documented as of this encounter Mental Status * Question Answer Entry Date Author BP 106/71 04/17/2021 8:35 AM FUSING MACHINE TENDER Esthela Hollis RN Temp 97.1 04/17/2021 8:35 AM FUSING MACHINE TENDER Esthela Hollis RN Pulse 78 04/17/2021 8:35 AM FUSING MACHINE TENDER Esthela Hollis RN SpO2 100 04/17/2021 8:35 AM FUSING MACHINE TENDER Esthela Hollis RN * Question Answer Entry Date Author Has the patient fallen twice in the past year without injury or once in the past year with injury? No 04/17/2021 8:35 AM FUSING MACHINE TENDER Emeli Munoz RN Does the patient report or d o you observe difficulty in gait or balance? No 04/17/2021 8:35 AM FUSING MACHINE TENDER Emeli Munoz RN documented in this encounter Miscellaneous Notes * Telephone Encounter - Grace Gill RN - 04/16/2021 8:19 AM CST . NG MACHINE TENDER documented in this encounter Plan of Treatment Upcoming Encounters Date Type Department Care Team (Late st Contact Info) Description 03/13/2025 4:40 PM FUSING MACHINE TENDER Office Visit [facility] Medical [facility] - Family Medicine - [place] [address] [place] [address] Rachna Orozco, [facility] [address] [place] [address] 04/28/2025 4:00 PM FUSING MACHINE TENDER Office Visit [facility] - Neurology [facility] [address] [place] [address] Joanne Martins APRN, SCIENTIFIC DIVER [address] [place] [address] documented as of this encounter Visit Diagnoses Diagnosis Seizures Other convulsions documented in this encounter Additional Health Concerns Assessment Noted Time PHQ-9 Depression Total Score: 0 06/06/19 21 9:03 AM FUSING MACHINE TENDER documented as of this encounter Care Teams Botany Teacher Relationship Specialty Start Date End Date Rachna Orozco, [facility] [address] [place] [address] PCP - General Physician Tavern Operator 05/19/18 Marin Mullins MD [address] [place] [address] Consulting Physician Neurology 06/17/21 Joanne Martins APRN, SCIENTIFIC DIVER [address] [place] [address] Nurse Practitioner Advanced Practice Nurse 12/14/23 documented as of this encounter
--- OUTSIDE RECORDS SUMMARY | 2025-02-27 15:47 | XMS_ITS | Encounter Summary ---
Author Organization [facility] Address [address] [place] [address] Phone Care Team Providers Care Director Workers Compensation Name Role Phone Rachna Orozco Primary Care Provider + Marin Mullins MD Unavailable Joanne Martins APRN, SILK CREPE MACHINE OPERATOR Unavailable [phone] Reason for Visit * Reason Comments Medication Refill Encounter Details Date Type Department Care Team (Late st Contact Info) Description 07/10/2021 [facility]ill [facility] [address] [place] [phone] Rachna Orozco PAC [address] [place] [address] Medication Refill Social History Tobacco Use Types [...] on file Legal Sex Female 12:12 PM SAND SCREENER Gender Identity Not on file Sexual Orientation Not on file COVID-19 Exposure Response Date Recorded In the last 10 days, have yo u been in contact with someone who was confirmed or suspected to have Coronavirus/COVID-19? No / Unsure 06/17/2021 2:30 PM CDT documented as of this encounter Miscellaneous Notes * Telephone Encounter - Aditi Hyatt APRN, CNP - 07/10/2021 5:39 PM CDT [place] M[place] reviewed, approved * Telephone Encounter - Alvina Dacosta RN - 07/10/2021 10:46 AM CDT Last Rx 01/08/21 Medication failed the protocol, provider to review and approve the medication order if appropriate. Requested Prescriptions Pending Prescriptions Disp Refills acetaminophen-codeine (TYLENOL #3) 300-30 MG Tablet [Pharmacy Med Name: ACETAMINOPHEN/COD #3 (300/30MG) TAB] 30 Tablet 0 Sig: TAKE 1 TABLET BY MOUTH EVERY 4 HOURS NEEDED FOR MODERATE TO SEVERE PAIN Not Delegated - Opioid Combinations Protocol Failed - 07/10/2021 5:10 AM Failed - This refill cannot be delegated Passed - Visit with relevant provider in past 12 months or upcoming 90 days Recent Visits Date Type Provider Dept 04/16/21 Office Visit Rachna Orozco PAC [facility] 01/08/21 Office Visit Rachna Orozco PAC [facility] 09/27/20 Office Visit Rachna Orozco PAC [facility] 08/17/20 Office Visit Rachna Orozco PAC [facility] Showing recent visits within past 365 days and meeting all other requirements Future Appointments Date Type Provider Dept 08/12/21 Appointment Rachna Orozco PAC [facility] Showing future appointments within next 90 days and meeting all other requirements documented in this encounter Plan of Treatment Upcoming Encounters Date Type Department Care Team (Late st Contact Info) Description 03/13/2025 4:40 PM SAND SCREENER Office Visit [facility] - Family Medicine [facility] [address] [place] [address] Rachna Orozco PAC [address] [place] [address] 04/28/2025 4:00 PM SAND SCREENER Office Visit [facility] Neurology [facility] [address] [place] [address] Joanne Martins APRN, SILK CREPE MACHINE OPERATOR [address] [place] [address] documented as of this encounter Visit Diagnoses Diagnosis Chronic bilateral back pain, unspecified back location documented in this encounter Additional Health Concerns Assessment Noted Time PHQ-9 Depression Total Score: 0 06/06/19 21 9:03 AM SAND SCREENER documented as of this encounter Care Teams Director Workers Compensation Relationship Specialty Start Date End Date Rachna Orozco PAC [address] [place] [address] PCP - General Physician Technical Services Specialist 05/19/18 Marin Mullins MD [address] [place] [address] Consulting Physician Neurology 06/17/21 Joanne Martins APRN, SILK CREPE MACHINE OPERATOR [address] [place] [address] Nurse Practitioner Advanced Practice Nurse 12/14/23 documented as of this encounter
--- OUTSIDE RECORDS SUMMARY | 2025-02-27 15:47 | XMS_ITS | Encounter Summary ---
Author Organization [facility] Address [address] [place] [address] Phone Care Team Providers Care Corporate Securities Research Analyst Name Role Phone Rachna Orozco Primary Care Provider + Marin Mullins MD Unavailable Joanne Martins APRN, [facility] Unavailable [phone] Reason for Visit * Reason Comments Medication Refill Encounter Details Date Type Department Care Team (Late st Contact Info) Description 11/04/2020 Refill [facility] [address] [place] [phone] Rachna Orozco PAC [address] [place] [address] Medication Refill Social History Tobacco Use Types [...] on file Legal Sex Female 12:12 PM RESPIRATORY TECHNICIAN Gender Identity Not on file Sexual Orientation Not on file COVID-19 Exposure Response Date Recorded In the last month, have you been in contact with someone who was confirmed or suspected to have Coronavirus / COVID-19? No / Unsure 10/16/2020 10:54 AM CDT documented as of this encounter Miscellaneous Notes * Telephone Encounter - Sho Moyer RN - 11/05/2020 2:14 PM CDT The original prescription was discontinued on 09/14/2020 by Dom Pena DO for the following reason: Med List Clean Up documented in this encounter Plan of Treatment Upcoming Encounters Date Type Department Care Team (Late st Contact Info) Description 03/13/2025 4:40 PM RESPIRATORY TECHNICIAN Office Visit [facility] Medical [facility] - Family Medicine [facility] [address] [place] [address] Rachna Orozco PAC [address] [place] [address] 04/28/2025 4:00 PM RESPIRATORY TECHNICIAN Office Visit [facility] - Neurology - [place] [address] [place] [address] Joanne Martins APRN, SENIOR SHAREPOINT ARCHITECT [address] [place] [address] documented as of this encounter Visit Diagnoses Not on filedocumented in this encounter Additional Health Concerns Assessment Noted Time PHQ-9 Depression Total Score: 0 06/06/19 21 9:03 AM RESPIRATORY TECHNICIAN documented as of this encounter Care Teams Corporate Securities Research Analyst Relationship Specialty Start Date End Date Rachna Orozco PAC [address] [place] [address] PCP - General Physician Horticultural Specialty Grower 05/19/18 Marin Mullins MD [address] [place] [address] Consulting Physician Neurology 06/17/21 Joanne Martins APRN, SENIOR SHAREPOINT ARCHITECT [address] [place], [place] [id number] Nurse Practitioner Advanced Practice Nurse 12/14/23 documented as of this encounter
--- OUTSIDE RECORDS SUMMARY | 2025-02-27 15:47 | XMS_ITS | Encounter Summary ---
Author Organization [facility] Address [address] [place] [address] Phone Care Team Providers Care Air Brake Worker Name Role Phone Rachna Orozco Primary Care Provider + Marin Mullins MD Unavailable [phone] Joanne Martins APRN, WEB CONTENT & SOCIAL MEDIA MANAGER Unavailable [phone]- [phone] Reason for Visit * Reason Comments Medication Refill Encounter Details Date Type Department Care Team (Late st Contact Info) Description 02/10/2022 Refill [facility] Oncology Services [address] [place] [phone] Allen Mane MD [address] [place] [address] Medication Refill Social History Tobacco Use Types [...] on file Legal Sex Female 12:12 PM SLAT BASKET MAKER Gender Identity Not on file Sexual Orientation Not on file COVID-19 Exposure Response Date Recorded In the last 10 days, have yo u been in contact with someone who was confirmed or suspected to have Coronavirus/COVID-19? No / Unsure 02/09/2022 10:59 PM SLAT BASKET MAKER documented as of this encounter Functional Status documented as of this encounter Mental Status * Question Answer Entry Date Author BP 124/72 02/10/2022 9:00 AM SLAT BASKET MAKER Danae Kelsey maya Temp 97.4 02/10/2022 9:00 AM SLAT BASKET MAKER Danae nKelsey Pulse 100 02/10/2022 9:00 AM SLAT BASKET MAKER Danae francesco, Kelsey Inman SpO2 100 02/10/2022 9:00 AM SLAT BASKET MAKER Kelsey Persaud documented in this encounter Miscellaneous Notes * Telephone Encounter - Lorie Jernigan RN - 02/10/2022 4:17 PM CST Script refill request for Xarelto from pharmacy. Reviewed last note and refilled. BASKET MAKER documented in this encounter Plan of Treatment Upcoming Encounters Date Type Department Care Team (Late st Contact Info) Description 03/13/2025 4:40 PM SLAT BASKET MAKER Office Visit [facility] - Family Medicine [facility] [address] [place] [address] Rachna Orozco, PAC [address] [place] [address] 04/28/2025 4:00 PM SLAT BASKET MAKER Office Visit [facility] Neurology [facility] [address] [place] [phone] Joanne Martins APRN, WEB CONTENT & SOCIAL MEDIA MANAGER [address] [place] [address] documented as of this encounter Visit Diagnoses Not on filedocumented in this encounter Additional Health Concerns Assessment Noted Time PHQ-9 Depression Total Score: 0 06/06/19 21 9:03 AM SLAT BASKET MAKER documented as of this encounter Care Teams Air Brake Worker Relationship Specialty Start Date End Date Rachna Orozco PAC [address] [place] [address] PCP - General Physician Denture Model Maker 05/19/18 Marin Mullins MD [address] [place] [address] Consulting Physician Neurology 06/17/21 Joanne Martins, ANIMAL CARE TAKER, WEB CONTENT & SOCIAL MEDIA MANAGER [address] [place] [address] Nurse Practitioner Advanced Practice Nurse 12/14/23 documented as of this encounter
--- OUTSIDE RECORDS SUMMARY | 2025-02-27 15:47 | XMS_ITS | Encounter Summary ---
Author Organization [facility] Address [address] [place] [address] Phone Care Team Providers Care Options Trader Name Role Phone Rachna Orozco Primary Care Provider + Marin Mullins MD Unavailable [phone] Joanne Martins APRN, WIRE GALVANIZER Unavailable [phone]- [phone] Reason for Visit * Reason Comments Medication Refill Encounter Details Date Type Department Care Team (Late st Contact Info) Description 03/08/2021 Refill [facility] Medical Oncology [address] [place] [phone] Allen Mane MD [address] [place] [address] Medication Refill Social History Tobacco Use Types [...] on file Legal Sex Female 12:12 PM POWER HAMMER OPERATOR Gender Identity Not on file Sexual Orientation Not on file documented as of this encounter Miscellaneous Notes * Telephone Encounter - Octavia Patel RN - 03/08/2021 9:50 AM POWER HAMMER OPERATOR Refilled Xarelto next f/u 03/14/21 R HAMMER OPERATOR documented in this encounter Plan of Treatment Upcoming Encounters Date Type Department Care Team (Late st Contact Info) Description 03/13/2025 4:40 PM POWER HAMMER OPERATOR Office Visit [facility] Medical [facility] - Family Medicine - [place] [address] [facility] [place] [address] Rachna Orozco PAC [address] [place] [address] 04/28/2025 4:00 PM POWER HAMMER OPERATOR Office Visit [facility] - Neurology - [place] [address] [place] [address] Joanne Martins APRN, WIRE GALVANIZER [address] [facility] [place] [address] documented as of this encounter Visit Diagnoses Not on filedocumented in this encounter Additional Health Concerns Assessment Noted Time PHQ-9 Depression Total Score: 0 06/06/19 9:03 AM POWER HAMMER OPERATOR documented as of this encounter Care Teams Options Trader Relationship Specialty Start Date End Date Rachna Orozco PAC [address] [facility] [place] [address] PCP - General Physician Music Engineer 05/19/18 Marin Mullins MD [address] [facility] [place] [address] Consulting Physician Neurology 3/21/22 Joanne Martins, GRINDING WHEEL OPERATOR, WIRE GALVANIZER [address] [place] [id number] Nurse Practitioner Advanced Practice Nurse 12/14/23 documented as of this encounter
--- OUTSIDE RECORDS SUMMARY | 2025-02-27 15:47 | XMS_ITS | Encounter Summary ---
Author Organization [facility] Address [address] [place] [address] Phone Care Team Providers Care Transition Program Manager Name Role Phone Rachna Orozco Primary Care Provider + Marin Mullins MD Unavailable [phone] Joanne Martins APRN, [facility] Unavailable [phone] Reason for Visit * Reason Comments Medication Refill Encounter Details Date Type Department Care Team (Late st Contact Info) Description 02/14/2024 Refill [facility] - Family Medicine [facility] [address] [place] [address] Rachna Orozco PAC [address] [place] [address] Medication Refill Social History Tobacco Use Types Packs/Day Years Used Date Smoking Tobacco: Never Smokeless Tobacco: Never Alcohol Use Standard Drinks/Week Comments No 0 (1 standard drink = 0.6 oz pur e alcohol) [facility] Utilities Answer Date Recorded In the past 12 months has [employer], gas, oil, or water company threatened [...] How often do you attend chur or scientology services? 1 to 4 times per year 12/13/2023 Do you belong to any clubs o r organizations such as adventism groups, unions, fraternal or athletic groups, or [...] Total Score - Questions 1-9 0 03/30 [facility] - Occupational Stress Questionnaire Answer Date Recorded [...] place to sleep or slept in a usp (including now)? No 07/08/2023 Housing Stability Vital Sign Answer [place] e Recorded In the last 12 months, was t here a time when you were not able to pay the mortgage or rent on time? No 12/13/2023 Number of Times Moved in the Last Year Not on fi le 12/13/2023 At any time in the past 12 [facility], were you homeless or living in a usp (including now)? No 12/13/2023 Education Answer Date Recorded What is the highest level of school you have completed or the highest degree you have received? 12th grade 08/15/2022 Sexually Active Control Partners Comments Not Currently Comments No Sex and Gender Information Value Date Recorded Sex Assigned at Not on file Legal Sex Female 12:12 PM ENGINEERING PROFESSION[employer] Gender Identity Not on file Sexual Orientation Not on file documented as of this encounter Miscellaneous Notes * Telephone Encounter - Alvina Dacosta RN - 02/15/2024 9:40 AM CST Last Rx 11/25/22 No reason for refill request in chart. [employer] documented in this encounter Plan of Treatment Upcoming Encounters Date Type Department Care Team (Late st Contact Info) Description 03/13/2025 4:40 PM ENGINEERING PROFESSIONALS [facility] [address] [place] [address] Rachna Orozco PAC [address] [place] [address] 04/28/2025 4:00 PM ENGINEERING PROFESSIONALS Office Visit [facility] - Neurology [facility] [address] [place] [address] Joanne Martins APRN, CORE FINISHER [address] [place] [address] documented as of this encounter Visit Diagnoses Diagnosis Chronic bilateral back pain, unspecified back location documented in this encounter Additional Health Concerns Assessment Noted Time PHQ-9 Depression Total Score: 0 04/10/19 24 3:43 PM ENGINEERING PROFESSION[employer] documented as of this encounter Care Teams Transition Program Manager Relationship Specialty Start Date End Date Rachna Orozco PAC [address] [place] [address] PCP - General Physician Master Lay Out Specialist 05/19/18 Marin Mullins MD [address] [place] [phone] Consulting Physician Neurology 06/17/21 Joanne Martins APRN, CORE FINISHER [address] [place] [address] Nurse Practitioner Advanced Practice Nurse 12/14/23 documented as of this encounter
--- NOTE | 2025-02-27 17:01 | ED_ITS ---
HPI - General Adult General Chief complaint: Extremity Injury, Lower <VALENTIN Guthrie - Last Filed: 02/27/25 17:06> Stated complaint: slip and fall on ice R knee <VALENTIN Guthrie Last Filed: 02/27/25 17:06> Time Seen by Provider: 02/27/25 17:47 <VALENTIN Guthrie Last Filed: 02/27/25 17:06> Focused HPI: 54 year old female presenting after slipping on ice. She reports she hyperextended her right knee. She is unable to bear weight. Patient was prescribed Xarelto for a history of blood clots but has not taken it for the last three months. Reports numbness to a anterior lateral knee and tingling in her toes. She states she did not hit her head. GENERAL:No acute distress. HEAD: Normocephalic, atraumatic. CHEST: Clear to auscultation. ?No respiratory distress. HEART: Regular rate and rhythm.? NEURO: ?Alert and oriented x3. Patient screened in triage and initial orders placed.? ?Additional care and disposition to be based upon?diagnostic testing and treatment. <VALENTIN Guthrie Last Filed: 02/27/25 17:06> Related Data Home medications: Home Medications ?Medication ?Instructions ?Recorded ?Confirmed ?Last Taken ?Type levetiracetam 1,000 mg tablet 1,500 mg PO BID 02/22/19 Unknown History (Keppra) levothyroxine 25 mcg capsule 25 mcg PO DAILY 02/22/19 Unknown History (Tirosint) rivaroxaban 20 mg tablet (Xarelto) 20 mg PO DAILY 01/29 09/15 Unknown History topiramate 100 mg tablet 100 mg PO BID 02/22/19 Unkn own History lacosamide 100 mg tablet (Vimpat) 100 mg PO Q12H 03/03 Unknown History <VALENTIN Guthrie Last Filed: 02/27/25 17:06> Allergies/adverse reactions: Allergies Allergy/AdvReac Type Severity Reaction Status Date / Time No Known Allergies Allergy Verified 02/27/25 15:17 <VALENTIN Guthrie Last Filed: 02/27/25 17:06> Review of Systems Review of Systems: All systems reviewed & are unremarkable except as noted in HPI and below <Kaylin Torres PA-C - Last Filed: 02/27/25 18:54> PMF[facility] Past Medical History Medical History: Medical History (Updated 02/27/25 @ 18:47 by Kaylin Torres PA-C) Pulmonary embolism Seizure disorder Headache, migraine Anemia <VALENTIN Guthrie Last Filed: 02/27/25 17:06> Surgical History Surgical History: Surgical History (Updated 12/22/19 @ 17:28 by Kaylin Torres PA-C) History of cholecystectomy <VALENTIN Guthrie Last Filed: 02/27/25 17:06> Social History Social History: Social History Smoking status: Never smoker Alcohol intake: never <VALENTIN Guthrie Last Filed: 02/27/25 17:06> Exam Narrative: GENERAL: Well-appearing, well-nourished, and in no acute distress. HEAD: Normocephalic, atraumatic. EYES: EOMI. CHEST: No respiratory distress. HEART: Regular rate EXTREMITIES: Normal range of motion. No edema. Normal DP pulse. Normal sensation SKIN: Warm, dry, no rash. NEURO: No focal deficits. Alert and oriented x3. PSYCH: Normal mood and affect <Kaylin Torres PA-C - Last Filed: 02/27/25 18:54> Course Vital Signs Vital signs: Vital Signs Temperature 97.9 F 02/27/25 15:17 Pulse Rate 89 02/27/25 15:17 Respiratory Rate 17 02/27/25 15:17 Blood Pressure 136/81 02/27/25 15:17 Pulse Oximetry 98 02/27/25 15:17 Oxygen Delivery Room Air 02/27/25 15:17 Temperature 99.1 F 02/27/25 17:17 Pulse Rate 75 02/27/25 17:17 Respiratory Rate 18 02/27/25 17:17 Blood Pressure 120/71 02/27/25 17:17 Pulse Oximetry 100 02/27/25 17:17 Oxygen Delivery Room Air 02/27/25 15:17 <VALENTIN Guthrie Last Filed: 02/27/25 17:06> Vital Signs Temperature 97.9 F 02/27/25 15:17 Pulse Rate 89 02/27/25 15:17 Respiratory Rate 17 02/27/25 15:17 Blood Pressure 136/81 02/27/25 15:17 Pulse Oximetry 98 02/27/25 15:17 Oxygen Delivery Room Air 02/27/25 15:17 Temperature 99.1 F 02/27/25 17:17 Pulse Rate 75 02/27/25 17:17 Respiratory Rate 18 02/27/25 17:17 Blood Pressure 120/71 02/27/25 17:17 Pulse Oximetry 100 02/27/25 17:17 Oxygen Delivery Room Air 02/27/25 15:17 <Kaylin Torres PA-C - Last Filed: 02/27/25 18:54> [facility] Narrative Medical decision making narrative: Patient presents to the emergency department after an injury to the right knee. Right knee and tib-fib x-ray show proximal fibular fracture. Patient placed in a knee immobilizer. She is neurovascularly intact. Will be given follow-up with Orthopedics for further care. Patient additionally endorses that she is supposed to be on indefinite anticoagulation and does not currently have a prescription. I will send her Xarelto, she was instructed on the importance of following up with her primary provider for further management <Kaylin Torres PA-C - Last Filed: 02/27/25 18:54> Differential Diagnosis Differential Diagnosis: Proximal fibula fracture, tibial plateau fracture, tib-fib fracture, knee sprain <Kaylin Torres PA-C - Last Filed: 02/27/25 18:54> Medical Records I have reviewed the following patient records and this information was taken into consideration when formulating the assessment and plan.: previous clinic visits (pharmacy review/previous prescriptions) <Kaylin Torres PA-C - Last Filed: 02/27/25 18:54> Imaging Data Radiologist's impression: ITS Impressions Knee X-Ray 02/27/25 17:40 Impression: 1: Proximal fibular fracture with minimal displacement. Tibia/Fibula X-Ray 02/27/25 18:21 Impression: 1: Stable appearance to minimally displaced proximal fibular fracture. Venous Doppler Study 02/27/25 18:35 IMPRESSION: 1: No lower extremity deep venous thrombosis. <VALENTIN Guthrie Last Filed: 02/27/25 17:06> ITS Impressions Knee X-Ray 02/27/25 17:40 Impression: 1: Proximal fibular fracture with minimal displacement. Tibia/Fibula X-Ray 02/27/25 18:21 Impression: 1: Stable appearance to minimally displaced proximal fibular fracture. Venous Doppler Study 02/27/25 18:35 IMPRESSION: 1: No lower extremity deep venous thrombosis. <Kaylin Torres PA-C - Last Filed: 02/27/25 18:54> Critical Care Time Critical Care Time Critical Care Time: No <Kaylin Torres PA-C - Last Filed: 02/27/25 18:54> Discharge Plan Discharge Clinical Impression: Closed fracture of fibula, proximal, right <VALENTIN Guthrie Last Filed: 02/27/25 17:06> Patient Disposition: Home <VALENTIN Guthrie Last Filed: 02/27/25 17:06> Condition: Stable <VALENTIN Guthrie Last Filed: 02/27/25 17:06> Instructions: Rivaroxaban (By mouth), Leg Fracture (ED) <VALENTIN Guthrie Last Filed: 02/27/25 17:06> Additional Instructions: Return to the ER if you experience fever, redness and swelling of your extremity, numbness or any other symptoms that are concerning to you Wear knee immobilizer. No weight on the affected leg. Ice and elevate extremity. Pain medication as needed and directed. Follow up with orthopedics and your primary doctor for further care. <VALENTIN Guthrie Last Filed: 02/27/25 17:06> Patient Language: Cape Verdean <VALENTIN Guthrie Last Filed: 02/27/25 17:06> Prescriptions: New Xarelto 20 mg tablet 20 mg PO DAILY 30 Days Qty: 30 0RF Rx Instructions: must administer with evening meal hydrocodone-acetaminophen 5-325 mg tablet 1 tablet PO Q6H PRN (Reason: pain) Qty: 20 0RF No Action levetiracetam [Keppra] 750 mg tablet 1,500 mg PO BID 14 Days Qty: 56 0RF levetiracetam [Keppra] 1,000 mg tablet 1,500 mg PO BID Xarelto 20 mg tablet 20 mg PO DAILY topiramate 100 mg tablet 100 mg PO BID Tirosint 25 mcg capsule 25 mcg PO DAILY Vimpat 100 mg tablet 100 mg PO Q12H <VALENTIN Guthrie - Last Filed: 02/27/25 17:06> Follow-up/Referrals: Ernesto,VALENTIN Chapa [Primary Care Provider, Unknown] Bryce Kennedy MD [Physician, Orthopedics] <VALENTIN Guthrie - Last Filed: 02/27/25 17:06>
[2025-02-27 17:17] VITALS: BP 120/71; PULSE 75; RESP 18; TEMP 37.3; O2SAT 100
--- OUTSIDE RECORDS SUMMARY | 2025-02-27 17:55 | XMS_ITS | Encounter Summary ---
Author Organization [facility] Address [address] [place] [address] Phone Care Team Providers Care Alignment Specialist Name Role Phone Rachna Orozco Primary Care Provider + Marin Mullins MD Unavailable Joanne Martins APRN, [facility] Unavailable [phone] Reason for Visit * Reason Comments Medication Refill Encounter Details Date Type Department Care Team (Late st Contact Info) Description 06/12/2022 [facility]ill [facility] [address] [place] [id number] Rachna Orozco PAC [address] [place] [address] Medication Refill Social History Tobacco Use Types [...] on file Legal Sex Female 12:12 PM WINDER HAND Gender Identity Not on file Sexual Orientation [...] st Contact Info) Description 03/13/2025 4:40 PM WINDER HAND Office Visit [facility] - Family Medicine [facility] [address] [place] [address] Rachna Orozco PAC [address] [place] [address] 04/28/2025 4:00 PM WINDER HAND [facility] [address] [place] [address] Joanne Martins APRN, JAPANESE INTERPRETER [address] [place] [address] documented as of this encounter Visit Diagnoses Diagnosis Low vitamin D level documented in this encounter Additional Health Concerns Assessment Noted Time PHQ-9 Depression Total Score: 0 06/06/19 21 9:03 AM WINDER HAND documented as of this encounter Care Teams Alignment Specialist Relationship Specialty Start Date End Date Rachna Orozco PAC [address] [place] [address] PCP - General Physician Historic Sites Supervisor 05/19/18 Marin Mullins MD [address] [place] [address] Consulting Physician Neurology 06/17/21 Joanne Martins APRN, JAPANESE INTERPRETER [address] [place] [address] Nurse Practitioner Advanced Practice Nurse 12/14/23 documented as of this encounter
--- OUTSIDE RECORDS SUMMARY | 2025-02-27 17:55 | XMS_ITS | Encounter Summary ---
Author Organization [facility] Address [address] [place] [address] Phone Care Team Providers Care Executive Search Consultant Name Role Phone Rachna Orozco Primary Care Provider + Marin Mullins MD Unavailable [phone] Joanne Martins APRN, HATCHERY ATTENDANT Unavailable [phone]- [phone] Reason for Visit * Reason Comments Medication Refill Encounter Details Date Type Department Care Team (Late st Contact Info) Description 03/08/2021 Refill [facility] Medical Oncology [address] [place] [phone] Allen Mane MD [address] [place] [address] Medication Refill Social History Tobacco Use Types [...] on file Legal Sex Female 12:12 PM POULTRY SEXER Gender Identity Not on file Sexual Orientation Not on file documented as of this encounter Miscellaneous Notes * Telephone Encounter - Octavia Patel RN - 03/08/2021 9:50 AM POULTRY SEXER Refilled Xarelto next f/u 03/14/21 TRY SEXER documented in this encounter Plan of Treatment Upcoming Encounters Date Type Department Care Team (Late st Contact Info) Description 03/13/2025 4:40 PM POULTRY SEXER Office Visit [facility] Medical [facility] - Family Medicine - [place] [address] [place] [address] Rachna Orozco PAC [address] [place] [address] 04/28/2025 4:00 PM POULTRY SEXER Office Visit [facility] - Neurology - [place] [address] [facility] [place] [address] Joanne Martins APRN, HATCHERY ATTENDANT [address] [place] [address] documented as of this encounter Visit Diagnoses Not on filedocumented in this encounter Additional Health Concerns Assessment Noted Time PHQ-9 Depression Total Score: 0 06/06/19 9:03 AM POULTRY SEXER documented as of this encounter Care Teams Executive Search Consultant Relationship Specialty Start Date End Date Rachna Orozco PAC [address] [place] [address] PCP - General Physician Customer Account Coordinator 05/19/18 Marin Mullins MD [address] [place] [address] Consulting Physician Neurology 3/21/22 Joanne Martins, PSYCHIATRY RESIDENT, HATCHERY ATTENDANT [address] [place] [id number] Nurse Practitioner Advanced Practice Nurse 12/14/23 documented as of this encounter
--- OUTSIDE RECORDS SUMMARY | 2025-02-27 17:55 | XMS_ITS | Encounter Summary ---
Author Organization [facility] Address [address] [place] [address] Phone Care Team Providers Care Geochemical Laboratory Technician Name Role Phone Rachna Orozco Primary Care Provider + Marin Mullins MD Unavailable [phone] Joanne Martins APRN, DISPATCHER RELAY Unavailable [phone] Reason for Visit * Reason Comments Medication Refill Encounter Details Date Type Department Care Team (Late st Contact Info) Description 07/10/2021 [facility]ill [facility] Family Medicine [facility] [address] [place] [id number] Rachna Orozco PAC [address] [place] [address] Medication Refill Social History Tobacco Use Types [...] on file Legal Sex Female 12:12 PM MEDIA RECONCILIATION SPECIALIST Gender Identity Not on file Sexual Orientation [...] CNP - 07/10/2021 5:39 PM CDT [place] NUCLEAR EQUIPMENT SALES ENGINEER reviewed, approved * Telephone Encounter - Alvina [...] st Contact Info) Description 03/13/2025 4:40 PM MEDIA RECONCILIATION SPECIALIST Office Visit [facility] - Family Medicine [facility] [address] [place] [address] Rachna Orozco PAC [address] [place] [address] 04/28/2025 4:00 PM MEDIA RECONCILIATION SPECIALIST Office Visit [facility] Neurology [facility] [address] [place] [address] Joanne Martins APRN, DISPATCHER RELAY [address] [place] [address] documented as of this encounter Visit Diagnoses Diagnosis Chronic bilateral back pain, unspecified back location documented in this encounter Additional Health Concerns Assessment Noted Time PHQ-9 Depression Total Score: 0 06/06/19 21 9:03 AM MEDIA RECONCILIATION SPECIALIST documented as of this encounter Care Teams Geochemical Laboratory Technician Relationship Specialty Start Date End Date Rachna Orozco PAC [address] [place] [address] PCP - General Physician Planer Chain Offbearer 05/19/18 Marin Mullins MD [address] [place] [address] Consulting Physician Neurology 06/17/21 Joanne Martins APRN, DISPATCHER RELAY [address] [place] [address] Nurse Practitioner Advanced Practice Nurse 12/14/23 documented as of this encounter
--- OUTSIDE RECORDS SUMMARY | 2025-02-27 17:55 | XMS_ITS | Encounter Summary ---
Author Organization [facility] Address [address] [place] [address] Phone Care Team Providers Care Business Unit Leader Name Role Phone Rachna Orozco Primary Care Provider + Marin Mullins MD Unavailable [phone] Joanne Martins APRN, DIGITAL ANALYST Unavailable [phone] Reason for Visit * Reason Comments Medication Refill Encounter Details Date Type Department Care Team (Late st Contact Info) Description 04/07/2020 [facility]ill [facility] - [facility]rology - [place] [address] [place] [address] Marin Mullins MD [address] [place] [phone] Medication Refill Social History Tobacco Use Types Packs/Day Years Used Date Smoking Tobacco: Never Smokeless Tobacco: Never Alcohol Use Standard Drinks/Week Comments No 0 (1 standard drink = 0.6 oz pur e alcohol) PHQ-2 Answer Date Recorded PHQ-2 Score 0 11/25/2018 Comments No Sex and Gender Information Value Date Recorded Sex Assigned at Not on file Legal Sex Female 12:12 PM AT HOME INDEPENDENT CALL CENTER AGENT Gender Identity Not on file Sexual Orientation Not on file COVID-19 Exposure Response Date Recorded In the last month, have you been in contact with someone who was confirmed or suspected to have Coronavirus / COVID-19? No / Unsure 04/05/2020 8:39 AM AT HOME INDEPENDENT CALL CENTER AGENT documented as of this encounter Plan of Treatment Upcoming Encounters Date Type Department Care Team (Late st Contact Info) Description 03/13/2025 4:40 PM AT HOME INDEPENDENT CALL CENTER AGENT Office Visit [facility] Family Medicine [facility] [address] [place] [address] Rachna Orozco PAC [address] [place] [address] 04/28/2025 4:00 PM AT HOME INDEPENDENT CALL CENTER AGENT Office Visit [facility] Neurology [facility] [address] [facility] [place] [address] Joanne Martins APRN, DIGITAL ANALYST [address] [place] [address] documented as of this encounter Visit Diagnoses Not on filedocumented in this encounter Additional Health Concerns Assessment Noted Time PHQ-9 Depression Total Score: 0 05/19/19 19 1:00 PM AT HOME INDEPENDENT CALL CENTER AGENT documented as of this encounter Care Teams Business Unit Leader Relationship Specialty Start Date End Date Rachna Orozco, ERNESTO [address] [place] [address] PCP - General Physician Manager Cancer 05/19/18 Marin Mullins MD [address] [place] [address] Consulting Physician Neurology 06/17/21 Joanne Martins APRN, DIGITAL ANALYST [address] [place] [address] Nurse Practitioner Advanced Practice Nurse 12/14/23 documented as of this encounter
--- OUTSIDE RECORDS SUMMARY | 2025-02-27 17:55 | XMS_ITS | Encounter Summary ---
Author Organization [facility] Address [address] [place] [address] Phone Care Team Providers Care Utility Locate Technician Name Role Phone Rachna Orozco Primary Care Provider + Marin Mullins MD Unavailable Joanne Martins APRN, FROG SHAKER Unavailable [phone] Reason for Visit * Reason Comments Medication Refill Encounter Details Date Type Department Care Team (Late st Contact Info) Description 04/15/2021 Refill [facility] [address] [place] [phone] Marin Mulilns MD [address] [place] [address] Medication Refill Social History Tobacco Use Types [...] on file Legal Sex Female 12:12 PM PHOTO CHECKER Gender Identity Not on file Sexual Orientation Not on file COVID-19 Exposure Response Date Recorded In the last month, have you been in contact with someone who was confirmed or suspected to have Coronavirus / COVID-19? No / Unsure 04/16/2021 8:21 AM PHOTO CHECKER documented as of this encounter Functional Status documented as of this encounter Mental Status * Question Answer Entry Date Author BP 106/71 04/17/2021 8:35 AM PHOTO CHECKER Esthela Hollis RN Temp 97.1 04/17/2021 8:35 AM PHOTO CHECKER Esthela Hollis RN Pulse 78 04/17/2021 8:35 AM PHOTO CHECKER Esthela Hollis RN SpO2 100 04/17/2021 8:35 AM PHOTO CHECKER Esthela Hollis RN * Question Answer Entry Date Author Has the patient fallen twice in the past year without injury or once in the past year with injury? No 04/17/2021 8:35 AM PHOTO CHECKER Emeli Munoz RN Does the patient report or d o you observe difficulty in gait or balance? No 04/17/2021 8:35 AM PHOTO CHECKER Emeli Munoz RN documented in this encounter Miscellaneous Notes * Telephone Encounter - Grace Gill RN - 04/16/2021 8:19 AM CST . O CHECKER documented in this encounter Plan of Treatment Upcoming Encounters Date Type Department Care Team (Late st Contact Info) Description 03/13/2025 4:40 PM PHOTO CHECKER Office Visit [facility] Medical [facility] - Family Medicine - [place] [address] [place] [address] Rachna Orozco, [facility] [address] [place] [address] 04/28/2025 4:00 PM PHOTO CHECKER Office Visit [facility] - [facility] [address] [place] [address] Joanne Martins APRN, FROG SHAKER [address] [place] [address] documented as of this encounter Visit Diagnoses Diagnosis Seizures Other convulsions documented in this encounter Additional Health Concerns Assessment Noted Time PHQ-9 Depression Total Score: 0 06/06/19 21 9:03 AM PHOTO CHECKER documented as of this encounter Care Teams Utility Locate Technician Relationship Specialty Start Date End Date Rachna Orozco, [facility] [address] [place] [address] PCP - General Physician Route Agent 05/19/18 Marin Mullins MD [address] [place] [address] Consulting Physician Neurology 06/17/21 Joanne Martins APRN, FROG SHAKER [address] [place] [address] Nurse Practitioner Advanced Practice Nurse 12/14/23 documented as of this encounter
--- OUTSIDE RECORDS SUMMARY | 2025-02-27 17:55 | XMS_ITS | Encounter Summary ---
Author Organization [facility] Address [address] [place] [address] Phone Care Team Providers Care Repair Tech Name Role Phone Rachna Orozco Primary Care Provider + Marin Mullins MD Unavailable [phone] Joanne Martins APRN, DOCUMENT REVIEW SPECIALIST Unavailable +- [phone] Reason for Visit * Reason Comments Medication Refill Encounter Details Date Type Department Care Team (Late st Contact Info) Description 02/10/2022 Refill [facility] - Cancer Center Oncology Services [address] [place] [phone] Allen Mane MD [address] [place] [address] Medication Refill Social History Tobacco Use Types [...] on file Legal Sex Female 12:12 PM LOG TRUCK DRIVER Gender Identity Not on file Sexual Orientation Not on file COVID-19 Exposure Response Date Recorded In the last 10 days, have yo u been in contact with someone who was confirmed or suspected to have Coronavirus/COVID-19? No / Unsure 02/09/2022 10:59 PM LOG TRUCK DRIVER documented as of this encounter Functional Status documented as of this encounter Mental Status * Question Answer Entry Date Author BP 124/72 02/10/2022 9:00 AM LOG TRUCK DRIVER Danae Kelsey maya Temp 97.4 02/10/2022 9:00 AM LOG TRUCK DRIVER Danae nKelsey Pulse 100 02/10/2022 9:00 AM LOG TRUCK DRIVER Danae francesco, Kelsey Inman SpO2 100 02/10/2022 9:00 AM LOG TRUCK DRIVER Kelsey Persaud documented in this encounter Miscellaneous Notes * Telephone Encounter - Lorie Jernigan RN - 02/10/2022 4:17 PM CST Script refill request for Xarelto from pharmacy. Reviewed last note and refilled. TRUCK DRIVER documented in this encounter Plan of Treatment Upcoming Encounters Date Type Department Care Team (Late st Contact Info) Description 03/13/2025 4:40 PM LOG TRUCK DRIVER Office Visit [facility] - Family Medicine [facility] [address] [place] [address] Rachna Orozco, PAC [address] [place] [address] 04/28/2025 4:00 PM LOG TRUCK DRIVER Office Visit [facility] Neurology [facility] [address] [place] [phone] Joanne Martins APRN, DOCUMENT REVIEW SPECIALIST [address] [place] [address] documented as of this encounter Visit Diagnoses Not on filedocumented in this encounter Additional Health Concerns Assessment Noted Time PHQ-9 Depression Total Score: 0 06/06/19 21 9:03 AM LOG TRUCK DRIVER documented as of this encounter Care Teams Repair Tech Relationship Specialty Start Date End Date Rachna Orozco PAC [address] [place] [address] PCP - General Physician Radiator Repairer 05/19/18 Marin Mullins MD [address] [place] [address] Consulting Physician Neurology 06/17/21 Joanne Martins, BAR FINISH OPERATOR, DOCUMENT REVIEW SPECIALIST [address] [place] [address] Nurse Practitioner Advanced Practice Nurse 12/14/23 documented as of this encounter
--- OUTSIDE RECORDS SUMMARY | 2025-02-27 17:55 | XMS_ITS | Encounter Summary ---
Author Organization [facility] Address [address] [place] [address] Phone Care Team Providers Care Control Panel Builder Name Role Phone Rachna Orozco Primary Care Provider + Marin Mullins MD Unavailable [phone] Joanne Martins APRN, [facility] Unavailable [phone] Reason for Visit * Reason Comments Medication Refill Encounter Details Date Type Department Care Team (Late st Contact Info) Description 11/04/2020 [facility]ill [facility] [address] [place] [phone] Rachna Orozco PAC [address] [place] [address] Medication Refill Social History Tobacco Use Types [...] on file Legal Sex Female 12:12 PM INSIDE SALES MANAGER Gender Identity Not on file Sexual [...] st Contact Info) Description 03/13/2025 4:40 PM INSIDE SALES MANAGER Office Visit [facility] Medical [facility] - Family Medicine [facility] [address] [place] [address] Rachna Orozco PAC [address] [place] [address] 04/28/2025 4:00 PM INSIDE SALES MANAGER Office Visit [facility] - [facility] - [place] [address] [place] [address] Joanne Martins APRN, APPLIED MATHEMATICIAN [address] [place] [address] documented as of this encounter Visit Diagnoses Not on filedocumented in this encounter Additional Health Concerns Assessment Noted Time PHQ-9 Depression Total Score: 0 06/06/19 21 9:03 AM INSIDE SALES MANAGER documented as of this encounter Care Teams Control Panel Builder Relationship Specialty Start Date End Date Rachna Orozco PAC [address] [place] [address] PCP - General Physician Mold Yard Crane Operator 05/19/18 Marin Mullins MD [address] [place] [address] Consulting Physician Neurology 06/17/21 Joanne Martins APRN, APPLIED MATHEMATICIAN [address] [place], [place] [id number] Nurse Practitioner Advanced Practice Nurse 12/14/23 documented as of this encounter
--- OUTSIDE RECORDS SUMMARY | 2025-02-27 17:55 | XMS_ITS | Encounter Summary ---
Author Organization [facility] Address [address] [place] [address] Phone Care Team Providers Care Biological Engineer Name Role Phone Rachna Orozco Primary Care Provider + Marin Mullins MD Unavailable Joanne Martins APRN, INFRASTRUCTURE ENGINEER Unavailable [phone] Reason for Visit * Reason Comments Medication Refill Encounter Details Date Type Department Care Team (Late st Contact Info) Description 02/25/2025 Refill [facility] - [facility]rology - [place] [address] [place] [phone] Joanne Martins, NEIL, INFRASTRUCTURE ENGINEER [address] [place] [address] Medication Refill Social History Tobacco Use Types Packs/Day Years Used Date Smoking Tobacco: Never Smokeless Tobacco: Never Alcohol Use Standard Drinks/Week Comments No 0 (1 standard drink = 0.6 oz pur e alcohol) [facility] Utilities Answer Date Recorded In the past 12 months has [employer] electric, gas, oil, or water company threatened [...] How often do you attend chur or jewish services? 1 to 4 times per year 12/13/2023 Do you belong to any clubs o r organizations such as catholic groups, unions, fraternal or athletic groups, or [...] Total Score - Questions 1-9 0 03/30 [facility] - Occupational Stress Questionnaire Answer Date [...] place to sleep or slept in a senior living (including now)? No 07/08/2023 Housing Stability Vital Sign Answer [place] e Recorded In the last 12 months, was t here a time when you were not able to pay the mortgage or rent on time? No 12/13/2023 Number of Times Moved in the Last Year Not on fi le 12/13/2023 At any time in the past [address] [facility], were you homeless or living in a senior living (including now)? No 12/13/2023 Education Answer Date Recorded What is the highest level of school you have completed or the highest degree you have received? 12th grade 08/15/2022 Sexually Active Control Partners Comments Not Currently Comments No Sex and Gender Information Value Date Recorded Sex Assigned at Not on file Legal Sex Female 12:12 PM EDI PROGRAMMER ANALYST Gender Identity Not on file Sexual Orientation [...] 01/27/25 Office Visit Joanne Martins APRN, [facility] Neurology [facility] 10/24/24 Office Visit Joanne Martins APRN, [facility] Neu[facility] Showing recent visits within past 365 days and meeting all other requirements Future Appointments Date Type Provider Dept 03/13/25 Appointment Rachna Orozco PAC [facility] 04/28/25 Appointment Joanne Martins APRN, [facility] [place] [facility] Showing future appointments within next 90 days and meeting all other requirements PROGRAMMER ANALYST documented in this encounter Plan of Treatment Upcoming Encounters Date Type Department Care Team (Late st Contact Info) Description 03/13/2025 4:40 PM EDI PROGRAMMER ANALYST Office Visit [facility] - Family Medicine [facility] [address] [place] [address] Rachna Orozco PAC [address] [place] [address] 04/28/2025 4:00 PM EDI PROGRAMMER ANALYST Office Visit [facility] Neurology [facility] [address] [place] [address] Joanne Martins APRN, INFRASTRUCTURE ENGINEER [address] [place] [address] documented as of this encounter Visit Diagnoses Diagnosis Seizures Other convulsions documented in this encounter Additional Health Concerns Assessment Noted Time PHQ-9 Depression Total Score: 0 04/10/19 24 3:43 PM EDI PROGRAMMER ANALYST documented as of this encounter Care Teams Biological Engineer Relationship Specialty Start Date End Date Rachna Orozco PAC [address] [place] [address] PCP - General Physician Government Affairs Specialist 05/19/18 Marin Mullins MD [address] [place] [address] Consulting Physician Neurology 06/17/21 Joanne Martins APRN, INFRASTRUCTURE ENGINEER [address] [place] [address] Nurse Practitioner Advanced Practice Nurse 12/14/23 documented as of this encounter
--- OUTSIDE RECORDS SUMMARY | 2025-02-27 17:55 | XMS_ITS | Clinical Summary ---
Author Organization [facility] Address [address] [place] [address] Care Team Providers Care Hand Roller Engraver Name Role Phone Rachna Orozco Primary Care Provider + [phone] Murphy Washington MD Unavailable [phone] Source Comments [facility],non-owned Affiliates and Associated Physician Practices is amultiple site organization consisting of ambulatory clinics and hospital sitesin [place], [place], [place] and [place]. This disclosure is being madepursuant to the Care Everywhere program and may not contain all information available regarding this patient. Last updated 17.[facility] Allergies No known active allergies [...] patient's age to complete this topic Insurance [facility] MEDICAID - OUT OF STATE Advance Directives * Full Code (Latest Code Status on File) Date Activated Date Inactivated Comments 07/01/2017 1:57 AM 07/04/2017 1:11 PM * Full Code Date Activated Date Inactivated Comments 05/21/2017 1:11 PM 05/28/2017 3:01 PM * Full Code Date Activated Date Inactivated Comments 02/09/2017 10:10 AM 02/14/2017 2:04 PM Care Teams Hand Roller Engraver Relationship Specialty Start Date End Date Rachna Orozco PA PCP - General 09/28/18 uMrphy [place] MD [address] [address] PCP - Attributed-[employer] [place] 10/29/23
--- OUTSIDE RECORDS SUMMARY | 2025-02-27 17:55 | XMS_ITS | Clinical Summary ---
Author Organization [facility] Address [address] [place] [address] Phone Care Team Providers Care Agricultural Sales Representative Name Role Phone Rachna Orozco Primary Care Provider + Marin Mullins MD Unavailable [phone] Joanne Martins APRN, HEALTH DIAGNOSTICS TEACHER Unavailable + [phone] Allergies No known active allergies Medications IBUPROFEN PO Take 200 mg by mouth as needed. Active Cyanocobalamin (VITAMIN B-12 PO) Take by mouth daily. Active Multiple Vitamins-Minera ls (ONE-A-DAY WOMENS PO) Take by mouth daily. Active ergocalciferol (VITAMIN D) 66333 UNIT CapsuleIndicati ons:Low vitamin D level TAKE [...] Type Department Care Team Description 02/25/2025 Refill [facility] [address] [place] [address] Joanne Martins APRN, HEALTH DIAGNOSTICS TEACHER Medication Refill 01/27/2025 3:30 PM CDT Office Visit [facility] Neu[facility] [address] [place] [address] Joanne Martins APRN, HEALTH DIAGNOSTICS TEACHER Seizures (Primary Dx); History of pulmonary embolus (PE) Discharge Disposition: Discharged to home or Selfcare 01/25/2025 Travel 12/26/2024 2:50 PM CDT - 12/26/2024 11:59 PM CDT [facility] [address] [place] [address] Rachna Orozco, PAC Discharge Disposition: Discharged to home or Selfcare 12/26/2024 Travel 12/11/20[facility] [address] [place] [address] [place] Renteria August, PAC Medication Refill 12/11/2024 [facility] [address] [place] [address] Joanne Martins, INVENTORY TRANSCRIBER, HEALTH DIAGNOSTICS TEACHER Medication Refill 11/30/2024 [facility] [address] [place] [address] Rachna Orozco, PAC Medication Refill from Last 3 Months Immunizations Immunization Administration Dates Next Due Covid-19, Mrna, Lnp-s, Pf, 3 0 Mcg/0.3 Ml Dose ([employer]) 09/21/2020 Influenza Vaccine greater than 3 yrs [...] drink = 0.6 oz pur e alcohol) [facility] Utilities Answer Date Recorded In the past [...] often do you attend chur ch or orthodox services? 1 to 4 times per year 12/13/2023 Do you belong to any clubs o r organizations such as voodoo groups, unions, fraternal or athletic groups, or [...] Total Score - Questions 1-9 0 03/30 [facility] [place] [facility] - Occupational Stress [...] place to sleep or slept in a [place] health care facility (including now)? No 07/08/2023 Housing Stability Vital Sign Answer [place] e Recorded In the last 12 months, was t here a time when you were not able to pay the mortgage or rent on time? No 12/13/2023 Number of Times Moved in the Last Year Not on fi le 12/13/2023 At any time in the past 12 m [facility], were you homeless or living in a [place] health care facility (including now)? No 12/13/2023 Education Answer Date Recorded What is the highest level of school you have completed or the highest degree you have received? 12th grade 08/15/2022 Sexually Active Control Partners Comments Not Currently Comments No Sex and Gender Information Value Date Recorded Sex Assigned at Not on file Legal Sex Female 12:12 PM SENIOR ACCOUNT REPRESENTATIVE Gender Identity Not on file Sexual Orientation [...] st Contact Info) Description 03/13/2025 4:40 PM SENIOR ACCOUNT REPRESENTATIVE Office Visit [facility] - Family Medicine - [place] [address] [place] [address] Rachna Orozco, PAC [address] [place] [address] 04/28/2025 4:00 PM SENIOR ACCOUNT REPRESENTATIVE [facility] - Neurology - [place] [address] [place] [address] Joanne Martins APRN, HEALTH DIAGNOSTICS TEACHER [address] [place] [address] Health Maintenance Due Date Last Done Comments [...] CDT) hepatitis C antibody 0.13 <1 S/CO [facility] ARCH [id number] B 08/15/2022 11:53 PM CDT [facility] Comment: Signal/Cutoff ratio < 0.79 is Nondetected Signal/Cutoff ratio 0.80-0.99 is Grayzone Signal/Cutoff ratio > 0.99 is Detected Supplemental assays are recommended if signal/cutoff ratio is >/=1.00. Signal/cutoff ratio result >/= 5.00 is 97% predictive of positivity for recombinant immunoblot assay (RIBA) and will be reported to the [place] Department of Public Health as required. Blood Venipuncture / Unknown 08/15/2022 9:39 AM CDT 08/15/2022 9:39 AM CDT Rachna Orozco PAC CHEMISTRY ORDERABLES Fin al Result [facility] [address] [place] [address], from Last 3 Months or Most Recently Relevant to Health Maintenance Insurance [employer] Advance Directives * Full Code (Latest Code Status on File) Date Activated Date Inactivated Comments 07/08/2018 10:49 PM 07/13/2018 7:27 PM CPR-Full Tr eatment: FULL ARREST: Attempt Resuscitation/CPR wit intubation and mechanical ventilation. PRE-ARREST: Use entire range of life support measures to stabilize the patient. Care Teams Agricultural Sales Representative Relationship Specialty Start Date End Date Rachna Orozco PAC [address] [place] [address] PCP - General Physician Non Destructive Evaluation Technician 05/19/18 Marin Mullins MD [address] [place] [address] Consulting Physician Neurology 06/17/21 Joanne Martins, INVENTORY TRANSCRIBER, HEALTH DIAGNOSTICS TEACHER [address] [place] [address] Nurse Practitioner Advanced Practice Nurse 12/14/23
--- OUTSIDE RECORDS SUMMARY | 2025-02-27 17:55 | XMS_ITS | Encounter Summary ---
Author Organization [facility] Address [address] [place] [address] Phone Care Team Providers Care Tinning Machine Set Up Operator Name Role Phone Rachna Orozco Primary Care Provider + Marin Mullins MD Unavailable [phone] Joanne Martins APRN, INTERNSHIP COORDINATOR Unavailable +- [phone] Reason for Visit * Reason Comments Medication Refill Encounter Details Date Type Department Care Team (Late st Contact Info) Description 04/13/2022 Refill [facility] - Cancer Center Oncology Services [address] [place] [address] Allen Mane MD [address] [place] [address] Medication Refill Social History Tobacco Use Types [...] on file Legal Sex Female 12:12 PM COOK TORTILLA Gender Identity Not on file Sexual Orientation Not on file documented as of this encounter Miscellaneous Notes * Telephone Encounter - [place] Renteria PAC - 04/14/2022 2:04 PM COOK TORTILLA Adjusted quantity of her refills to 5, refill was approved. TORTILLA * Telephone Encounter - Erika Ayers RN - 04/14/2022 1:39 PM CST Okay to refill Xarelto? Last f/u with you in December 2021; no f/u scheduled. 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 TORTILLA documented in this encounter Plan of Treatment Upcoming Encounters Date Type Department Care Team (Late st Contact Info) Description 03/13/2025 4:40 PM COOK TORTILLA Office Visit [facility] Medical [facility] - Family Medicine [facility] [address] [place] [address] Rachna Orozco, PAC [address] [place] [address] 04/28/2025 4:00 PM COOK TORTILLA Office Visit [facility] - Neurology - [place] [address] [place] [address] Joanne Martins APRN, INTERNSHIP COORDINATOR [address] [place] [address] documented as of this encounter Visit Diagnoses Not on filedocumented in this encounter Additional Health Concerns Assessment Noted Time PHQ-9 Depression Total Score: 0 06/06/19 21 9:03 AM COOK TORTILLA documented as of this encounter Care Teams Tinning Machine Set Up Operator Relationship Specialty Start Date End Date Rachna Orozco, [facility] [address] [place] [address] PCP - General Physician Sheet Rock Nailer 05/19/18 Marin Mullins MD [address] [place] [address] Consulting Physician Neurology 06/17/21 Joanne Martins APRN, INTERNSHIP COORDINATOR [address] [place] [address] Nurse Practitioner Advanced Practice Nurse 12/14/23 documented as of this encounter
--- OUTSIDE RECORDS SUMMARY | 2025-02-27 17:55 | XMS_ITS | Encounter Summary ---
Author Organization [facility] Address [address] [place] [address] Phone Care Team Providers Care Postmaster Name Role Phone Rachna Orozco Primary Care Provider + Marin Mullins MD Unavailable Joanne Martins APRN, [facility] Unavailable [phone] Reason for Visit * Reason Comments Medication Refill Encounter Details Date Type Department Care Team (Late st Contact Info) Description 06/01/2022 [facility]ill [facility] [address] [place] [address] Rachna Orozco PAC [address] [place] [address] Medication Refill Social History Tobacco Use Types [...] on file Legal Sex Female 12:12 PM HOSPICE CARE CONSULTANT Gender Identity Not on file Sexual Orientation Not on file documented as of this encounter Miscellaneous Notes * Telephone Encounter - Rachna Orozco PAC - 06/02/2022 1:01 PM HOSPICE CARE CONSULTANT Last vitamin d in range ICE CARE CONSULTANT * Telephone Encounter - Alvina Dacosta RN - 06/02/2022 12:10 PM CST Medication failed the protocol, provider to review and approve the medication order if appropriate. Requested Prescriptions Pending Prescriptions Disp Refills ergocalciferol (VITAMIN D) 94306 UNIT Capsule [Pharmacy Med Name: VITAMIN D2 [...] 08/15/22 Appointment Rachna Orozco PAC [facility] Showing future appointments within next 90 days and meeting all other requirements ICE CARE CONSULTANT documented in this encounter Plan of Treatment Upcoming Encounters Date Type Department Care Team (Late st Contact Info) Description 03/13/2025 4:40 PM HOSPICE CARE CONSULTANT [facility] Medicine - [place] [address] [place] [address] Rachna Orozco PAC [address] [place] [address] 04/28/2025 4:00 PM HOSPICE CARE CONSULTANT [facility] Visit [facility] - Neurology [facility] [address] [place] [address] Joanne Martins APRN, JEWEL BEARING TURNER [address] [place] [address] documented as of this encounter Visit Diagnoses Diagnosis Low vitamin D level documented in this encounter Additional Health Concerns Assessment Noted Time PHQ-9 Depression Total Score: 0 06/06/19 21 9:03 AM HOSPICE CARE CONSULTANT documented as of this encounter Care Teams Postmaster Relationship Specialty Start Date End Date Rachna Orozco PAC [address] [place] [address] PCP - General Physician Ductfixing Plumber 05/19/18 Marin Mullins MD [address] [place] [address] Consulting Physician Neurology 06/17/21 Joanne Martins APRN, JEWEL BEARING TURNER [address] [place] [address] Nurse Practitioner Advanced Practice Nurse 12/14/23 documented as of this encounter
--- NOTE | 2025-02-27 17:56 | ED_ITS ---
HPI - Extremity Injury (Lower) General Chief Complaint: Extremity Injury, Lower Stated Complaint: slip and fall on ice R knee Time Seen by Provider: 02/27/25 17:47 Source: patient Mode of arrival: wheelchair Limitations: no limitations Related Data Home Medications ?Medication ?Instructions ?Recorded ?Confirmed ?Last Taken ?Type levetiracetam 1,000 mg tablet 1,500 mg PO BID 02/22/19 Unknown History (Keppra) levothyroxine 25 mcg capsule 25 mcg PO DAILY 02/22/19 Unknown History (Tirosint) rivaroxaban 20 mg tablet (Xarelto) 20 mg PO DAILY 01/29 09/15 Unknown History topiramate 100 mg tablet 100 mg PO BID 02/22/19 Unkn own History lacosamide 100 mg tablet (Vimpat) 100 mg PO Q12H 03/03 Unknown History Allergies Allergy/AdvReac Type Severity Reaction Status Date / Time No Known Allergies Allergy Verified 02/27/25 15:17 [facility] Past Medical History Medical History (Updated 07/03/20 @ 00:00 by Naomy Ruiz) Pulmonary embolism Seizure disorder Headache, migraine Anemia Surgical History Surgical History (Updated 12/22/19 @ 17:28 by Kaylin Torres PA-C) History of cholecystectomy Social History Social History Smoking status: Never smoker Alcohol intake: never Course Vital Signs Vital signs: Vital Signs Temperature 97.9 F 02/27/25 15:17 Pulse Rate 89 02/27/25 15:17 Respiratory Rate 17 02/27/25 15:17 Blood Pressure 136/81 02/27/25 15:17 Pulse Oximetry 98 02/27/25 15:17 Oxygen Delivery Room Air 02/27/25 15:17 Temperature 99.1 F 02/27/25 17:17 Pulse Rate 75 02/27/25 17:17 Respiratory Rate 18 02/27/25 17:17 Blood Pressure 120/71 02/27/25 17:17 Pulse Oximetry 100 02/27/25 17:17 Oxygen Delivery Room Air 02/27/25 15:17 [facility] Imaging Data Radiologist's impression: ITS Impressions Knee X-Ray 02/27/25 17:40 Impression: 1: Proximal fibular fracture with minimal displacement. Discharge Plan Discharge Patient Language: Eritrean Prescriptions: No Action levetiracetam [Keppra] 750 mg tablet 1,500 mg PO BID 14 Days Qty: 56 0RF levetiracetam [Keppra] 1,000 mg tablet 1,500 mg PO BID Xarelto 20 mg tablet 20 mg PO DAILY topiramate 100 mg tablet 100 mg PO BID Tirosint 25 mcg capsule 25 mcg PO DAILY Vimpat 100 mg tablet 100 mg PO Q12H Follow-up/Referrals: Ernesto,VALENTIN Chapa [Primary Care Provider, Unknown]
--- OUTSIDE RECORDS SUMMARY | 2025-02-27 17:56 | XMS_ITS | Encounter Summary ---
Author Organization [facility] Address [address] [place] [address] Phone Care Team Providers Care Web Site Specialist Name Role Phone Rachna Orozco Primary Care Provider + Marin Mullins MD Unavailable Joanne Martins APRN, [facility] Unavailable [phone] Reason for Visit * Reason Comments Medication Refill Encounter Details Date Type Department Care Team (Late st Contact Info) Description 05/29/2024 Refill [facility] Medical Group - Family Medicine [facility] [address] [place] [address] Rachna Orozco PAC [address] [place] [address] Medication Refill Social History Tobacco Use Types Packs/Day Years Used Date Smoking Tobacco: Never Smokeless Tobacco: Never Alcohol Use Standard Drinks/Week Comments No 0 (1 standard drink = 0.6 oz pur e alcohol) [facility] Utilities Answer Date Recorded In the past 12 months has [employer] electric, gas, oil, or water company threatened [...] How often do you attend chur or mosque services? 1 to 4 times per year [...] Total Score - Questions 1-9 0 03/30 [facility] - Occupational Stress Questionnaire Answer Date Recorded [...] place to sleep or slept in a detention (including now)? No 07/08/2023 Housing Stability Vital Sign Answer [place] Recorded In the last 12 months, was t here a time when you were not able to pay the mortgage or rent on time? No 12/13/2023 Number of Times Moved in the Last Year Not on fi le 12/13/2023 At any time in the past 12 m [facility], were you homeless or living in a detention (including now)? No 12/13/2023 Education Answer Date Recorded What is the highest level of school you have completed or the highest degree you have received? 12th grade 08/15/2022 Sexually Active Control Partners Comments Not Currently Comments No Sex and Gender Information Value Date Recorded Sex Assigned at Not on file Legal Sex Female 12:12 PM STEEL ANALYST Gender Identity Not on file Sexual Orientation Not on file documented as of this encounter Miscellaneous Notes * Telephone Encounter - Alvina Dacosta RN - 05/30/2024 11:17 AM CST Name from pharmacy: PHENTERMINE 37.5MG TABLETS Will file in chart as: Phentermine HCl 37.5 MG Tablet The original prescription was discontinued on 04/10/2023 by Rachna Orozco, PAC L ANALYST documented in this encounter Plan of Treatment Upcoming Encounters Date Type Department Care Team (Late st Contact Info) Description 03/13/2025 4:40 PM STEEL ANALYST Office Visit [facility] Medical [facility] - Family Medicine - [place] [address] [facility] [place] [address] Rachna Orozco PAC [address] [facility] [place] [address] 04/28/2025 4:00 PM STEEL ANALYST Office Visit [facility] Neurology - [place] [address] [facility] [place] [address] Joanne Martins APRN, STAMPING DIE TRY OUT WORKER [address] [place] [address] documented as of this encounter Visit Diagnoses Diagnosis BMI 40.0-44.9, adult Body Mass Index 40.0-44.9, adult Dietary counseling and surveillance Dietary surveillance and counseling documented in this encounter Additional Health Concerns Assessment Noted Time PHQ-9 Depression Total Score: 0 04/10/19 3:43 PM STEEL ANALYST documented as of this encounter Care Teams Web Site Specialist Relationship Specialty Start Date End Date Rachna Orozco PAC [address] [place] [address] PCP - General Physician Exhaust Worker 05/19/18 Marin Mullins MD [address] [place] [address] Consulting Physician Neurology 06/17/21 Joanne Martins APRN, STAMPING DIE TRY OUT WORKER [address] [place] [address] Nurse Practitioner Advanced Practice Nurse 12/14/23 documented as of this encounter
--- OUTSIDE RECORDS SUMMARY | 2025-02-27 17:56 | XMS_ITS | Encounter Summary ---
Author Organization [facility] Address [address] [place] [address] Phone Care Team Providers Care Senior Treasury Analyst Name Role Phone Rachna Orozco Primary Care Provider + Marin Mullins MD Unavailable [phone] Joanne Martins APRN, [facility] Unavailable [phone] Reason for Visit * Reason Comments Medication Refill Encounter Details Date Type Department Care Team (Late st Contact Info) Description 02/14/2024 Refill [facility] Medical Group - Family Medicine [facility] [address] [place] [address] Rachna Orozco PAC [address] [place] [address] Medication Refill Social History Tobacco Use Types Packs/Day Years Used Date Smoking Tobacco: Never Smokeless Tobacco: Never Alcohol Use Standard Drinks/Week Comments No 0 (1 standard drink = 0.6 oz pur e alcohol) [facility] Utilities Answer Date Recorded In the past 12 months has [employer] electric, gas, oil, or water company threatened [...] How often do you attend chur or lutheran services? 1 to 4 times per year 12/13/2023 Do you belong to any clubs o r organizations such as christianity groups, unions, fraternal or athletic groups, or [...] Score - Questions 1-9 0 03/30 [facility] - Occupational Stress Questionnaire Answer Date [...] place to sleep or slept in a intermediate (including now)? No 07/08/2023 Housing Stability Vital Sign Answer [place] Recorded In the last 12 months, was t here a time when you were not able to pay the mortgage or rent on time? No 12/13/2023 Number of Times Moved in the Last Year Not on fi le 12/13/2023 At any time in the past 12 m [facility], were you homeless or living in a intermediate (including now)? No 12/13/2023 Education Answer Date Recorded What is the highest level of school you have completed or the highest degree you have received? 12th grade 08/15/2022 Sexually Active Control Partners Comments Not Currently Comments No Sex and Gender Information Value Date Recorded Sex Assigned at Not on file Legal Sex Female 12:12 PM GEOSPATIAL TECHNOLOGIST Gender Identity Not on file Sexual Orientation Not on file documented as of this encounter Miscellaneous Notes * Telephone Encounter - Alvina Dacosta RN - 02/15/2024 9:40 AM CST Last Rx 11/25/22 No reason for refill request in chart. PATIAL TECHNOLOGIST documented in this encounter Plan of Treatment Upcoming Encounters Date Type Department Care Team (Late st Contact Info) Description 03/13/2025 4:40 PM GEOSPATIAL TECHNOLOGIST [facility] [address] [place] [address] Rachna Orozco PAC [address] [place] [address] 04/28/2025 4:00 PM GEOSPATIAL TECHNOLOGIST Office Visit [facility] - Neurology [facility] [address] [place] [address] Joanne Martins APRN, BILINGUAL MEDICAL ASSISTANT [address] [place] [address] documented as of this encounter Visit Diagnoses Diagnosis Chronic bilateral back pain, unspecified back location documented in this encounter Additional Health Concerns Assessment Noted Time PHQ-9 Depression Total Score: 0 04/10/19 24 3:43 PM GEOSPATIAL TECHNOLOGIST documented as of this encounter Care Teams Senior Treasury Analyst Relationship Specialty Start Date End Date Rachna Orozco PAC [address] [place] [address] PCP - General Physician Audograph Operator 05/19/18 Marin Mullins MD [address] [place] [id number] Consulting Physician Neurology 06/17/21 Joanne Martins APRN, BILINGUAL MEDICAL ASSISTANT [address] [place] [address] Nurse Practitioner Advanced Practice Nurse 12/14/23 documented as of this encounter
[2025-02-27] MEDS: ACETAMINOPHEN 500 MG TABLET 1000 MG PO (18:40)
== END 2025-02-27 19:37 | disposition home or self-care (01) ==
PROVIDERS: Emergency Provider Physician Assistant; PCP Physician Assistant
DX: S82.831A Other fracture of upper and lower end of right fibula, initial encounter for closed fracture (principal); Z86.711 Personal history of pulmonary embolism; G40.909 Epilepsy, unspecified, not intractable, without status epilepticus; D64.9 Anemia, unspecified; W00.0XXA Fall on same level due to ice and snow, initial encounter
CPT/HCPCS: 73562; 73590; 93970; 99284; A9270